=== PATIENT | male | born 1945 | race Caucasian/White ===

== ENCOUNTER 2020-03-19 10:16 | Outpatient (REF) | payer MEDICARE, SELFPAY ==
[2020-03-19 12:15] LABS: Estimated Average Glucose 237 mg/dL; Hemoglobin A1c % 9.9 %
== END 2020-03-19 10:17 | disposition home or self-care (01) ==
LOC: HO.MANLR 10:16
PROVIDERS: PCP Physician Assistant; Visit Provider Physician Assistant
DX: E11.9 Type 2 diabetes mellitus without complications (principal)
CPT/HCPCS: 83036

== ENCOUNTER 2020-07-31 10:12 | Outpatient (REF) | payer MEDICARE, SELFPAY ==
[2020-07-31 17:30] LABS: Creatinine Urine 249.28 mg/dL; Microalbum/Creatinine Ratio Ur 12.4 ug/mg cr
[2020-07-31 17:38] LABS: Estimated Average Glucose 214 mg/dL; Hemoglobin A1c % 9.1 %
[2020-07-31 18:00] LABS: Alanine Aminotransferase 31 U/L (0-40); Albumin Level 4.1 g/dL (3.5-5.0); Alkaline Phosphatase 94 U/L (39-117); Anion Gap 15 (12-20); Aspartate Amino Transferase 22 U/L (5-37); Bilirubin Total 0.6 mg/dL (0.0-1.0); Blood Urea Nitrogen 15 mg/dL (9-16); Calcium 9.1 mg/dL (8.4-10.2); Carbon Dioxide 26 mmol/L (22-29); Chloride 103 mmol/L (96-108); Cholesterol 125 mg/dL; Estimated Glomerular Filt Rate > 60; Glucose Fasting 206 mg/dL (60-99); HDL Cholesterol 36 mg/dL; LDL Cholesterol Calculated 62 mg/dl; Potassium 4.9 mmol/L (3.3-5.1); Sodium 139 mmol/L (135-145); Total Protein 6.7 g/dL (6.5-8.0); Triglycerides 135 mg/dL
== END 2020-07-31 10:13 | disposition home or self-care (01) ==
LOC: HO.MANLDS 10:12
PROVIDERS: PCP Internal Medicine; Visit Provider Physician Assistant
DX: E11.9 Type 2 diabetes mellitus without complications (principal)
CPT/HCPCS: 36415; 80053; 80061; 82043; 83036

== ENCOUNTER 2020-11-22 10:30 | Outpatient (REF) | payer MEDICARE, SELFPAY ==
[2020-11-22 14:07] LABS: Estimated Average Glucose 232 mg/dL; Hemoglobin A1c % 9.7 %
== END 2020-11-22 10:31 | disposition home or self-care (01) ==
LOC: HO.MANLDS 10:30
PROVIDERS: PCP Internal Medicine; Visit Provider Physician Assistant
DX: E11.9 Type 2 diabetes mellitus without complications (principal)
CPT/HCPCS: 36415; 83036

== ENCOUNTER 2021-03-12 10:00 | Outpatient (REF) | payer MEDICARE, SELFPAY ==
[2021-03-12 12:52] LABS: Estimated Average Glucose 246 mg/dL; Hemoglobin A1c % 10.2 %
[2021-03-12 13:08] LABS: Alanine Aminotransferase 29 U/L (0-40); Albumin Level 3.8 g/dL (3.5-5.0); Alkaline Phosphatase 92 U/L (39-117); Anion Gap 16 (12-20); Aspartate Amino Transferase 17 U/L (5-37); Bilirubin Total 0.5 mg/dL (0.0-1.0); Blood Urea Nitrogen 14 mg/dL (9-16); Calcium 9.3 mg/dL (8.4-10.2); Carbon Dioxide 24 mmol/L (22-29); Chloride 105 mmol/L (96-108); Cholesterol 116 mg/dL; Estimated Glomerular Filt Rate > 60; Glucose Fasting 241 mg/dL (60-99); HDL Cholesterol 31 mg/dL; LDL Cholesterol Calculated 41 mg/dl; Potassium 4.5 mmol/L (3.3-5.1); Sodium 140 mmol/L (135-145); Total Protein 6.4 g/dL (6.5-8.0); Triglycerides 220 mg/dL
== END 2021-03-12 10:01 | disposition home or self-care (01) ==
LOC: HO.MANLDS 10:00
PROVIDERS: PCP Physician Assistant; Visit Provider Physician Assistant
DX: E11.9 Type 2 diabetes mellitus without complications (principal)
CPT/HCPCS: 36415; 80053; 80061; 83036

== ENCOUNTER 2021-07-16 09:23 | Outpatient (REF) | payer MEDICARE, SELFPAY ==
[2021-07-16 11:59] LABS: Estimated Average Glucose 237 mg/dL; Hemoglobin A1c % 9.9 %
[2021-07-16 12:12] LABS: Alanine Aminotransferase 31 U/L (0-40); Alkaline Phosphatase 85 U/L (39-117); Anion Gap 16 (12-20); Aspartate Amino Transferase 19 U/L (5-37); Bilirubin Total 0.7 mg/dL (0.0-1.0); Blood Urea Nitrogen 22 mg/dL (9-16); Calcium 9.9 mg/dL (8.4-10.2); Carbon Dioxide 22 mmol/L (22-29); Chloride 106 mmol/L (96-108); Cholesterol 133 mg/dL; Estimated Glomerular Filt Rate > 60; Glucose Fasting 229 mg/dL (60-99); HDL Cholesterol 34 mg/dL; LDL Cholesterol Calculated 54 mg/dl; Potassium 4.5 mmol/L (3.3-5.1); Sodium 139 mmol/L (135-145); Total Protein 6.6 g/dL (6.5-8.0); Triglycerides 228 mg/dL
== END 2021-07-16 09:24 | disposition home or self-care (01) ==
LOC: HO.MANLDS 09:23
PROVIDERS: PCP Physician Assistant; Referring Provider Physician Assistant; Visit Provider Physician Assistant
DX: E11.9 Type 2 diabetes mellitus without complications (principal)
CPT/HCPCS: 36415; 80053; 80061; 83036

== ENCOUNTER 2021-12-09 09:54 | Outpatient (REF) | payer MEDICARE, SELFPAY ==
[2021-12-09 11:19] LABS: Estimated Average Glucose 237 mg/dL; Hemoglobin A1c % 9.9 %
[2021-12-09 12:00] LABS: Alanine Aminotransferase 32 U/L (0-40); Albumin Level 3.8 g/dL (3.5-5.0); Alkaline Phosphatase 91 U/L (39-117); Anion Gap 16 (12-20); Aspartate Amino Transferase 20 U/L (5-37); Bilirubin Total 0.7 mg/dL (0.0-1.0); Blood Urea Nitrogen 15 mg/dL (9-16); Calcium 8.9 mg/dL (8.4-10.2); Carbon Dioxide 24 mmol/L (22-29); Chloride 106 mmol/L (96-108); Cholesterol 123 mg/dL; Estimated Glomerular Filt Rate > 60; Glucose Random 254 mg/dL (60-115); HDL Cholesterol 40 mg/dL; LDL Cholesterol Calculated 55 mg/dl; Potassium 4.7 mmol/L (3.3-5.1); Sodium 141 mmol/L (135-145); Total Protein 6.2 g/dL (6.5-8.0); Triglycerides 140 mg/dL
== END 2021-12-09 09:55 | disposition home or self-care (01) ==
LOC: HO.MANLDS 09:54
PROVIDERS: Visit Provider Physician Assistant
DX: E11.9 Type 2 diabetes mellitus without complications (principal)
CPT/HCPCS: 36415; 80053; 80061; 83036

== ENCOUNTER 2022-03-25 09:33 | Outpatient (REF) | payer MEDICARE, SELFPAY ==
[2022-03-25 11:32] LABS: Estimated Average Glucose 295 mg/dL; Hemoglobin A1c % 11.9 %
[2022-03-25 12:06] LABS: Alanine Aminotransferase 31 U/L (0-40); Albumin Level 3.8 g/dL (3.5-5.0); Alkaline Phosphatase 113 U/L (39-117); Anion Gap 17 (12-20); Aspartate Amino Transferase 21 U/L (5-37); Bilirubin Total 0.8 mg/dL (0.0-1.0); Blood Urea Nitrogen 15 mg/dL (9-16); Calcium 8.8 mg/dL (8.4-10.2); Carbon Dioxide 23 mmol/L (22-29); Chloride 106 mmol/L (96-108); Cholesterol 148 mg/dL; Estimated Glomerular Filt Rate > 60; Glucose Random 342 mg/dL (60-115); HDL Cholesterol 36 mg/dL; LDL Cholesterol Calculated 82 mg/dl; Potassium 4.9 mmol/L (3.3-5.1); Sodium 141 mmol/L (135-145); Total Protein 6.4 g/dL (6.5-8.0); Triglycerides 152 mg/dL
== END 2022-03-25 09:34 | disposition home or self-care (01) ==
LOC: HO.MANLDS 09:33
PROVIDERS: Visit Provider Physician Assistant
DX: E11.9 Type 2 diabetes mellitus without complications (principal)
CPT/HCPCS: 36415; 80053; 80061; 83036

== ENCOUNTER 2022-04-29 11:26 | Outpatient (REF) | payer MEDICARE, SELFPAY ==
[2022-04-29 14:35] LABS: Alanine Aminotransferase 23 U/L (0-40); Albumin Level 3.8 g/dL (3.5-5.0); Alkaline Phosphatase 114 U/L (39-117); Anion Gap 11 (12-20); Aspartate Amino Transferase 15 U/L (5-37); Bilirubin Total 0.6 mg/dL (0.0-1.0); Blood Urea Nitrogen 15 mg/dL (9-16); Calcium 9.3 mg/dL (8.4-10.2); Carbon Dioxide 24 mmol/L (22-29); Chloride 104 mmol/L (96-108); Estimated Glomerular Filt Rate > 60; Glucose Random 438 mg/dL (60-115); Potassium 4.4 mmol/L (3.3-5.1); Sodium 135 mmol/L (135-145); Total Protein 6.3 g/dL (6.5-8.0)
== END 2022-04-29 11:27 | disposition home or self-care (01) ==
LOC: HO.MANLDS 11:26
PROVIDERS: Visit Provider Physician Assistant
DX: E11.9 Type 2 diabetes mellitus without complications (principal)
CPT/HCPCS: 36415; 80053

== ENCOUNTER 2022-11-04 08:56 | Outpatient (REF) | payer MEDICARE, SELFPAY ==
[2022-11-04 13:33] LABS: MANUAL DIFF FLAG NO
[2022-11-04 14:06] LABS: Estimated Average Glucose 206 mg/dL; Hemoglobin A1c % 8.8 %
[2022-11-04 14:07] LABS: Basophils Absolute Auto 0.1 X10*3/uL (0.0-0.2); Basophils Percent Auto 0.5 % (0-2); Eosinophils Absolute Auto 0.2 X10*3/uL (0.0-0.4); Eosinophils Percent Auto 1.7 % (0-4); Hemoglobin 14.7 g/dl (14.0-18.0); Imm Gran Abs Auto 0.05 X10*3/uL (0.00-0.03); Imm Gran Pct Auto 0.5 % (0.0-0.4); Lymphocytes Absolute Auto 3.4 X10*3/uL (1.2-4.9); Lymphocytes Percent Auto 33.3 % (20-40); Mean Corpuscular Hemoglobin 27.8 pg (27.0-33.0); Mean Corpuscular Volume 87.1 fL (80.0-98.0); Mean Platelet Volume 11.5 fL (9.4-12.4); Monocytes Absolute Auto 0.8 X10*3/uL (0.1-1.2); Monocytes Percent Auto 8.3 % (2-11); Neutrophils Absolute Auto 5.6 x10*3/uL (2.0-8.3); Neutrophils Percent Auto 55.7 % (45-73); Platelet Count 284 X10*3/uL (160-400); Red Blood Count 5.28 X10*6/uL (4.60-5.80); Red Cell Distribution Width 13.8 % (11.0-16.0); White Blood Count 10.1 X10*3/uL (4.8-10.8)
[2022-11-04 14:36] LABS: Alanine Aminotransferase 35 U/L (0-40); Albumin Level 3.8 g/dL (3.5-5.0); Alkaline Phosphatase 105 U/L (39-117); Anion Gap 16 (12-20); Aspartate Amino Transferase 19 U/L (5-37); Bilirubin Total 0.9 mg/dL (0.0-1.0); Blood Urea Nitrogen 17 mg/dL (9-16); Calcium 9.9 mg/dL (8.4-10.2); Carbon Dioxide 23 mmol/L (22-29); Chloride 106 mmol/L (96-108); Estimated Glomerular Filt Rate > 60; Glucose Random 236 mg/dL (60-115); Potassium 4.5 mmol/L (3.3-5.1); Sodium 140 mmol/L (135-145); Total Protein 6.7 g/dL (6.5-8.0)
== END 2022-11-04 08:57 | disposition home or self-care (01) ==
LOC: HO.MANLDS 08:56
PROVIDERS: Visit Provider Physician Assistant
DX: E11.41 Type 2 diabetes mellitus with diabetic mononeuropathy (principal)
CPT/HCPCS: 36415; 80053; 83036; 85025

== ENCOUNTER 2023-03-24 09:38 | Outpatient (REF) | payer MEDICARE, SELFPAY ==
[2023-03-24 13:22] LABS: MANUAL DIFF FLAG NO
[2023-03-24 13:44] LABS: Basophils Percent Auto 0.4 % (0-2); Eosinophils Absolute Auto 0.2 X10*3/uL (0.0-0.4); Eosinophils Percent Auto 2.3 % (0-4); Hemoglobin 14.8 g/dl (14.0-18.0); Imm Gran Abs Auto 0.06 X10*3/uL (0.00-0.03); Imm Gran Pct Auto 0.8 % (0.0-0.4); Lymphocytes Absolute Auto 2.6 X10*3/uL (1.2-4.9); Lymphocytes Percent Auto 33.1 % (20-40); Mean Corpuscular HGB Conc 32.2 g/dl (31.0-36.0); Mean Corpuscular Hemoglobin 27.8 pg (27.0-33.0); Mean Corpuscular Volume 86.5 fL (80.0-98.0); Mean Platelet Volume 10.5 fL (9.4-12.4); Monocytes Absolute Auto 0.8 X10*3/uL (0.1-1.2); Monocytes Percent Auto 10.4 % (2-11); Neutrophils Absolute Auto 4.2 x10*3/uL (2.0-8.3); Platelet Count 280 X10*3/uL (160-400); Red Blood Count 5.32 X10*6/uL (4.60-5.80); Red Cell Distribution Width 13.5 % (11.0-16.0)
[2023-03-24 14:09] LABS: Alanine Aminotransferase 40 U/L (0-40); Albumin Level 3.6 g/dL (3.5-5.0); Alkaline Phosphatase 86 U/L (39-117); Anion Gap 11 (12-20); Aspartate Amino Transferase 33 U/L (5-37); Bilirubin Total 0.6 mg/dL (0.0-1.0); Blood Urea Nitrogen 18 mg/dL (9-16); Calcium 9.2 mg/dL (8.4-10.2); Carbon Dioxide 28 mmol/L (22-29); Chloride 104 mmol/L (96-108); Cholesterol 96 mg/dL (<200); Estimated Glomerular Filt Rate > 60; Glucose Random 241 mg/dL (60-115); HDL Cholesterol 32 mg/dL (>40); LDL Cholesterol Calculated 44 mg/dL (<100); Potassium 4.3 mmol/L (3.3-5.1); Sodium 139 mmol/L (135-145); Total Protein 6.3 g/dL (6.5-8.0); Triglycerides 103 mg/dL (<150)
[2023-03-24 14:18] LABS: Creatinine Urine 121.16 mg/dL; Microalbum/Creatinine Ratio Ur 7.4 ug/mg cr (<30)
[2023-03-24 14:37] LABS: Estimated Average Glucose 229 mg/dL; Hemoglobin A1c % 9.6 % (<6.0)
== END 2023-03-24 09:39 | disposition home or self-care (01) ==
LOC: HO.MANLDS 09:38
PROVIDERS: Visit Provider Physician Assistant
DX: E11.65 Type 2 diabetes mellitus with hyperglycemia (principal)
CPT/HCPCS: 36415; 80053; 80061; 82043; 82570; 83036; 85025

== ENCOUNTER 2023-06-29 09:10 | Outpatient (REF) | payer MEDICARE, SELFPAY ==
[2023-06-29 14:08] LABS: MANUAL DIFF FLAG NO
[2023-06-29 14:17] LABS: Basophils Absolute Auto 0.1 X10*3/uL (0.0-0.2); Basophils Percent Auto 0.7 % (0-2); Eosinophils Absolute Auto 0.2 X10*3/uL (0.0-0.4); Eosinophils Percent Auto 2.8 % (0-4); Hematocrit 46.4 % (42.0-52.0); Hemoglobin 14.9 g/dl (14.0-18.0); Imm Gran Abs Auto 0.02 X10*3/uL (0.00-0.03); Imm Gran Pct Auto 0.3 % (0.0-0.4); Lymphocytes Absolute Auto 2.6 X10*3/uL (1.2-4.9); Lymphocytes Percent Auto 36.3 % (20-40); Mean Corpuscular HGB Conc 32.1 g/dl (31.0-36.0); Mean Corpuscular Hemoglobin 27.8 pg (27.0-33.0); Mean Corpuscular Volume 86.6 fL (80.0-98.0); Mean Platelet Volume 10.6 fL (9.4-12.4); Monocytes Absolute Auto 0.8 X10*3/uL (0.1-1.2); Monocytes Percent Auto 10.8 % (2-11); Neutrophils Absolute Auto 3.5 x10*3/uL (2.0-8.3); Neutrophils Percent Auto 49.1 % (45-73); Platelet Count 281 X10*3/uL (160-400); Red Blood Count 5.36 X10*6/uL (4.60-5.80); Red Cell Distribution Width 13.7 % (11.0-16.0); White Blood Count 7.1 X10*3/uL (4.8-10.8)
[2023-06-29 15:13] LABS: Alanine Aminotransferase 24 U/L (0-40); Albumin Level 3.6 g/dL (3.5-5.0); Alkaline Phosphatase 73 U/L (39-117); Anion Gap 12 (12-20); Aspartate Amino Transferase 17 U/L (5-37); Bilirubin Total 0.7 mg/dL (0.0-1.0); Blood Urea Nitrogen 14 mg/dL (9-16); Calcium 9.2 mg/dL (8.4-10.2); Carbon Dioxide 26 mmol/L (22-29); Chloride 107 mmol/L (96-108); Estimated Glomerular Filt Rate > 60; Glucose Random 188 mg/dL (60-115); Potassium 4.2 mmol/L (3.3-5.1); Sodium 141 mmol/L (135-145); Total Protein 6.4 g/dL (6.5-8.0)
[2023-06-29 15:43] LABS: Estimated Average Glucose 220 mg/dL; Hemoglobin A1c % 9.3 % (<6.0)
== END 2023-06-29 09:11 | disposition home or self-care (01) ==
LOC: HO.MANLDS 09:10
PROVIDERS: Visit Provider Physician Assistant
DX: E11.65 Type 2 diabetes mellitus with hyperglycemia (principal)
CPT/HCPCS: 36415; 80053; 83036; 85025

== ENCOUNTER 2023-09-07 10:24 | Outpatient (REF) | payer MEDICARE, SELFPAY ==
[2023-09-07 13:20] LABS: MANUAL DIFF FLAG NO
[2023-09-07 13:31] LABS: Basophils Absolute Auto 0.1 X10*3/uL (0.0-0.2); Basophils Percent Auto 0.7 % (0-2); Eosinophils Absolute Auto 0.2 X10*3/uL (0.0-0.4); Eosinophils Percent Auto 2.2 % (0-4); Hematocrit 47.1 % (42.0-52.0); Hemoglobin 15.4 g/dl (14.0-18.0); Imm Gran Abs Auto 0.02 X10*3/uL (0.00-0.03); Imm Gran Pct Auto 0.2 % (0.0-0.4); Lymphocytes Absolute Auto 3.1 X10*3/uL (1.2-4.9); Lymphocytes Percent Auto 34.7 % (20-40); Mean Corpuscular HGB Conc 32.7 g/dl (31.0-36.0); Mean Corpuscular Hemoglobin 28.9 pg (27.0-33.0); Mean Corpuscular Volume 88.5 fL (80.0-98.0); Mean Platelet Volume 11.2 fL (9.4-12.4); Monocytes Absolute Auto 0.9 X10*3/uL (0.1-1.2); Monocytes Percent Auto 9.5 % (2-11); Neutrophils Absolute Auto 4.7 x10*3/uL (2.0-8.3); Neutrophils Percent Auto 52.7 % (45-73); Platelet Count 269 X10*3/uL (160-400); Red Blood Count 5.32 X10*6/uL (4.60-5.80); Red Cell Distribution Width 13.9 % (11.0-16.0)
[2023-09-07 13:43] LABS: Estimated Average Glucose 194 mg/dL; Hemoglobin A1c % 8.4 % (<6.0)
[2023-09-07 13:55] LABS: Alanine Aminotransferase 27 U/L (0-40); Albumin Level 3.9 g/dL (3.5-5.0); Alkaline Phosphatase 77 U/L (39-117); Anion Gap 17 (12-20); Aspartate Amino Transferase 19 U/L (5-37); Bilirubin Total 0.6 mg/dL (0.0-1.0); Blood Urea Nitrogen 20 mg/dL (9-16); Calcium 9.5 mg/dL (8.4-10.2); Carbon Dioxide 26 mmol/L (22-29); Chloride 105 mmol/L (96-108); Cholesterol 123 mg/dL (<200); Estimated Glomerular Filt Rate > 60; Glucose Random 209 mg/dL (60-115); HDL Cholesterol 36 mg/dL (>40); LDL Cholesterol Calculated 64 mg/dL (<100); Potassium 4.5 mmol/L (3.3-5.1); Sodium 143 mmol/L (135-145); Triglycerides 116 mg/dL (<150)
== END 2023-09-07 10:25 | disposition home or self-care (01) ==
LOC: HO.MANLDS 10:24
PROVIDERS: Visit Provider Physician Assistant
DX: E11.65 Type 2 diabetes mellitus with hyperglycemia (principal); E78.2 Mixed hyperlipidemia
CPT/HCPCS: 36415; 80053; 80061; 83036; 85025

== ENCOUNTER 2023-12-14 09:12 | Outpatient (REF) | payer MEDICARE, SELFPAY ==
[2023-12-14 13:32] LABS: MANUAL DIFF FLAG NO
[2023-12-14 13:45] LABS: Basophils Absolute Auto 0.1 X10*3/uL (0.0-0.2); Basophils Percent Auto 0.5 % (0-2); Eosinophils Absolute Auto 0.3 X10*3/uL (0.0-0.4); Eosinophils Percent Auto 3.1 % (0-4); Hemoglobin 15.5 g/dl (14.0-18.0); Imm Gran Abs Auto 0.05 X10*3/uL (0.00-0.03); Imm Gran Pct Auto 0.5 % (0.0-0.4); Lymphocytes Absolute Auto 3.1 X10*3/uL (1.2-4.9); Lymphocytes Percent Auto 32.1 % (20-40); Mean Corpuscular HGB Conc 32.3 g/dl (31.0-36.0); Mean Corpuscular Hemoglobin 28.4 pg (27.0-33.0); Mean Corpuscular Volume 88.1 fL (80.0-98.0); Mean Platelet Volume 11.1 fL (9.4-12.4); Monocytes Absolute Auto 0.9 X10*3/uL (0.1-1.2); Monocytes Percent Auto 8.9 % (2-11); Neutrophils Absolute Auto 5.3 x10*3/uL (2.0-8.3); Neutrophils Percent Auto 54.9 % (45-73); Platelet Count 232 X10*3/uL (160-400); Red Blood Count 5.45 X10*6/uL (4.60-5.80); Red Cell Distribution Width 13.6 % (11.0-16.0); White Blood Count 9.7 X10*3/uL (4.8-10.8)
[2023-12-14 13:57] LABS: Estimated Average Glucose 197 mg/dL; Hemoglobin A1c % 8.5 % (<6.0)
[2023-12-14 14:08] LABS: Alanine Aminotransferase 43 U/L (0-40); Albumin Level 3.9 g/dL (3.5-5.0); Alkaline Phosphatase 78 U/L (39-117); Anion Gap 16 (12-20); Aspartate Amino Transferase 32 U/L (5-37); Bilirubin Total 0.6 mg/dL (0.0-1.0); Blood Urea Nitrogen 16 mg/dL (9-16); Calcium 9.5 mg/dL (8.4-10.2); Carbon Dioxide 23 mmol/L (22-29); Chloride 103 mmol/L (96-108); Cholesterol 141 mg/dL (<200); Estimated Glomerular Filt Rate > 60; Glucose Random 270 mg/dL (60-115); HDL Cholesterol 38 mg/dL (>40); LDL Cholesterol Calculated 72 mg/dL (<100); Potassium 4.5 mmol/L (3.3-5.1); Sodium 137 mmol/L (135-145); Triglycerides 155 mg/dL (<150)
[2023-12-14 14:17] LABS: Creatinine Urine 251.29 mg/dL; Microalbum/Creatinine Ratio Ur 15.1 ug/mg cr (<30)
== END 2023-12-14 09:13 | disposition home or self-care (01) ==
LOC: HO.MANLDS 09:12
PROVIDERS: Visit Provider Physician Assistant
DX: E11.65 Type 2 diabetes mellitus with hyperglycemia (principal)
CPT/HCPCS: 36415; 80053; 80061; 82043; 82570; 83036; 85025

== ENCOUNTER 2024-04-17 11:08 | Outpatient (REF) | payer MEDICARE, SELFPAY ==
--- OUTSIDE RECORDS SUMMARY | 2024-04-17 11:13 | XMS_ITS | Data Portability ---
Author Organization [facility] Home Service Address [address] [place] [address] Assessment Encounter Date Assessment Date Assessment LastModified by Organization Details LastModified Time 07/06/2023 07/06/2023 Patient agreed and verbally consents to this audio and video Telehealth appt via a secure platform [email or web address] Not available 07/06/2023 10:08:53 12/21/2023 12/21/2023 Patient agreed and verbally consents to this audio and video Telehealth appt via a secure platform [email or web address] Not available 12/21/2023 13:40:50 Plan of Treatment Reminders Order Date Submit Date Provider Last Modified By Organization Details Last Modified Time Details Appointments FOLLOW UP 15 2024 11:00A M MELVIN ELLIOTT Not available Not available Not available Lab CMP, serum or plasma 2022 023 [facility], [address] [place] [address], [id number], 03/25/2023 11:57:12 lipid panel, blood 2022 023 [facility], [address] [place] [address], [id number], 03/25/2023 11:57:12 hemoglobi n A1c, QN, blood 2022 023 [facility], [address] [place] [address], [id number], 03/25/2023 11:57:13 microalbu min, urine 2022 023 [facility], [address] [place] [address], [id number], 01/29/2023 11:04:38 CBC w/ auto diff 2022 023 [facility], [address] [place] [address], [id number], 03/25/2023 11:57:13 CMP, serum or plasma 2022 024 [facility], [address] [place] [address], [id number], 06/30/2023 11:40:16 lipid panel, blood 2022 024 [facility], [address] [place] [address], 94843, 03/25/2023 11:57:12 hemoglobi n A1c, QN, blood 2022 024 [facility], [address] [place] [address], [id number], 06/30/2023 11:40:16 CBC w/ auto diff 2022 024 [facility], [address] [place] [address], 72501, 06/30/2023 11:40:17 CMP, serum or plasma 2023 024 [facility], [address] [place] [address], [id number], 09/08/2023 11:29:16 hemoglobi n A1c, QN, blood 2023 024 [facility], [address] [place] [address], [id number], 09/08/2023 11:29:16 CBC w/ auto diff 2023 024 [facility], [address] [place] [address], [id number], 06/30/2023 11:40:17 hemoglobi n A1c, QN, blood 2023 024 [facility], [address] [place] [address], 36099, 09/14/2023 10:29:45 CMP, serum or plasma 2023 024 [facility], [address] [place] [address], [id number], 12/15/2023 11:27:02 CMP, serum or plasma 2023 024 [facility], [address] [place] [address], 79724, 12/15/2023 11:27:02 HbA1c (hemoglob in A1c), blood 2023 024 [facility], [address] [place] [address], [id number], 09/14/2023 10:28:25 CMP, serum or plasma 2023 024 [facility], [address] [place] [address], [id number], 09/14/2023 10:28:25 lipid panel, blood 2023 024 [facility], [address] [place] [address], [id number], 09/14/2023 10:28:24 hemoglobi n A1c, QN, blood 2023 024 [facility], [address] [place] [address], [id number], 09/14/2023 10:28:24 PSA, serum or plasma 2023 024 [facility], [address] [place] [address], 12659, 12/21/2023 13:55:55 HbA1c (hemoglob in A1c), blood 2023 [facility], [address] [place] [address], 58097, 12/21/2023 13:42:39 CMP, serum or plasma 2023 [facility], [address] [place] [address], 62401, 12/21/2023 13:42:39 lipid panel, blood 2023 [facility], [address] [place] [address], [id number], 12/21/2023 13:42:39 hemoglobi n A1c, QN, blood 2023 024 [facility], [address] [place] [address], 12015, 12/21/2023 13:42:39 Referral podiatris t referral - please leave a VM if patient doesn't answer the phone 2022 023 niurka Perez [facility], [address] [place] [address], [id number], 04/12/2023 08:48:25 Procedures None recorded. Surgeries None recorded. Imaging None recorded. Medication Orders zolpidem 5 mg tablet 2022 023 [facility] #[id number], [address], [place], [id number], 07/06/2023 10:09:58 Ozempic 1 mg/dose (4 mg/3 mL) subcutane ous pen injector 2022 023 [facility] #10182, [address], [place], [id number], 07/06/2023 10:01:21 Ozempic 2 mg/dose (8 mg/3 mL) subcutane ous pen injector 2023 [facility] #[id number], [address], [place], [id number], 07/06/2023 10:11:11 Ozempic 2 mg/dose (8 mg/3 mL) subcutane ous pen injector 2023 [facility] #78490, [facility], [place], [id number], 12/21/2023 13:42:13 glipizide ER 10 mg tablet, extended release 24 hr 2023 024 [facility] #[id number], [facility] [place], [place], [id number], 12/21/2023 13:45:59 Januvia 100 mg tablet 2023 024 [facility] #96489, [facility] [place], [place], [phone], 12/21/2023 13:45:59 metoprolo l tartrate 50 mg tablet 2023 024 [facility] #41986, [facility] [place], [place], [id number], 12/21/2023 13:45:56 atorvasta tin 80 mg tablet 2023 024 [facility] #57567, [address], [place], [id number], 12/21/2023 13:43:27 Patient TargetsNo targets recorded. Patient InstructionsNo instructions recorded. 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 Problems Name Problem SNOMED Code Status Onset Date Resolution Date Notes Provider Name and Address Organization Details Recorded Time Abnormal gait 25057450 Active 2022 Not Available [facility] 4 00:30:26 Irritable bowel syndrome 35021456 Active 2022 Not Available [facility] 4 00:30:26 Diabetes mellitus 13079383 Active 2022 Not Available [facility] 4 00:30:27 Diabetic peripheral neuropathy 324017476 Active 2022 Not Available [facility] 4 00:30:26 Acute bronchitis 37076200 Active 2022 Not Available [facility] 4 00:30:26 Insomnia 957564349 Active 2022 Not Available [facility] 4 00:30:26 Type 2 diabetes mellitus 35263598 Active 2017 Not Available [facility] 4 00:30:26 Fracture of ankle 33390649 Active 2017 2005 Not Available [facility] 4 00:30:26 Prostate specific antigen above reference range 459887663 Active 2017 urology referral Not Available [facility] 4 00:30:26 Carcinoma of prostate 712967687 Active 2017 Not Available [facility] 4 00:30:26 Hyperlipid emia 61365633 Active 2017 Not Available [facility] 4 00:30:26 Onychomyco sis 768367612 Active 2017 Not Available [facility] 4 00:30:26 Coronary arterioscl erosis 61273859 Active 2017 Not Available [facility] 4 00:30:26 Acute non-ST segment elevation myocardial infarction 958559564 Active 2017 inferior/ lateral wall 03/11/16 Not Available [facility] 4 00:30:26 Essential hypertensi on 30618106 Active 2017 Not Available [facility] 4 00:30:26 Notes:Some problems listed i n Document: #[id number] could not be added to this patient's chart. Please review this document and add these problems to the patient's chart manually as needed. Problem Notes None recorded. Procedures Surgical History Date Name Laterality Status Provider Name and Address Organization Details Recorded Time CABG completed [facility] 10/19/2017 13:53:10 Imaging Results None recorded. Procedure Notes None recorded. Medical Equipment None Reported. Allergies Allergen ID Allergen Name Allergen Category Reaction Reaction Severity Criticality Documentation Date Start Date Code Code System Note Provider Name and Address Organization Details Recorded Time 3663 ketoconaz ole medicatio n Not available Not available Not available 05/01/2019 6135 RxNorm blist violeta and faustino kruger [facility] 0 15:18:50 3664 Lupron medicatio n Not available Not available Not available 05/01/201955137 2 RxNorm Radha kruger [facility] 0 15:22:07 5971 valsartan medicatio n diarrhea Not available Not available 12/16/2021 52563 RxNorm MELVIN ELLIOTT [address] [place], [address], [facility] 2 09:46:03 Medications Name Sig Start Date Stop Date Status Note LastModified by Organization Details LastModified Time metformin 500 mg tablet 01/19 completed Not Available Not Available Not Available bicalutam rafiq 50 mg tablet Take 1 tablet every day by oral route. 03/30 completed Not Available Not Available Not Available atorvasta tin 80 mg tablet TAKE 1 TABLET BY MOUTH DAILY. 2023 active Not Available Not Available Not Avai lable doxycycli ne hyclate 100 mg capsule TAKE 1 CAPSULE BY MOUTH TWICE DAILY WITH FOOD AND WATER FOR 5 DAYS 11/25 completed Not Available Not Available Not Available azithromy koki 250 mg tablet TAKE 2 TABLETS (500 MG) BY ORAL ROUTE ONCE DAILY FOR 1 DAY THEN 1 TABLET (250 MG) BY ORAL ROUTE ONCE DAILY FOR 4 DAYS 12/22 completed Not Available Not Available Not Available glyburide 5 mg tablet TAKE 1 TABLET BY MOUTH DAILY IN THE MORNING WITH BREAKFAS T 05/01 completed Not Available Not Available Not Available glipizide ER 10 mg tablet, extended release 24 hr TAKE 1 TABLET BY MOUTH AT NIGHTTIM E 2023 active Not Available Not Available Not Avai lable glipizide 10 mg tablet TAKE 1 TABLET BY MOUTH EVERY DAY active Not Available Not Available No t Available valsartan 80 mg tablet TAKE 1 TABLET BY MOUTH DAILY 12/16 completed Not Available Not Available Not Available dicyclomi ne 20 mg tablet TAKE 1 TABLET BY MOUTH THREE TIMES DAILY FOR 14 DAYS NEEDED 09/16 completed Not Available Not Available Not Available erythromy koki 5 mg/gram (0.5 %) eye ointment APPLY A SMALL AMOUNT TO BOTH EYELIDS AT BEDTIME FOR 1 WEEK 07/29 completed Not Available Not Available Not Available metformin 1,000 mg tablet TAKE 1 TABLET BY MOUTH TWICE DAILY 12/16 completed Not Available Not Available Not Available metoprolo l tartrate 50 mg tablet TAKE 1 TABLET BY MOUTH TWICE DAILY 2023 active Not Available Not Available Not Avai lable mupirocin 2 % topical ointment APPLY TO SURGICAL SITE TWICE DAILY UNTIL FOLLOW UP APPOINTM ENT active Not Available Not Available No t Available zolpidem 5 mg tablet TAKE 1 TABLET BY MOUTH EVERY DAY FOR 14 DAYS 07/05 completed Not Available Not Available Not Available scopolami ne 1 mg over 3 days transderm al patch APPLY 1 PATCH TOPICALL Y TO THE SKIN EVERY 3 DAYS NEEDED 12/16 completed Not Available Not Available Not Available albuterol sulfate HFA 90 mcg/actua tion aerosol inhaler INHALE 2 PUFFS BY MOUTH EVERY 4 HOURS active Not Available Not Available No t Available ketoconaz ole 2 % topical cream 05/01 completed Not Available Not Available Not Available glipizide 5 mg tablet Take 1 tablet every day by oral route for 90 days. 08/10 completed Not Available Not Available Not Available amoxicill in 875 mg-potass ium clavulana te 125 mg tablet TAKE 1 TABLET BY MOUTH TWICE DAILY FOR 10 DAYS 09/13 completed Not Available Not Available Not Available ciclopiro x 0.77 % topical cream APPLY TO RASH ON THE FEET TWICE DAILY active Not Available Not Available No t Available Aspir-81 Take one tablet once a day active Not Available Not Available No t Available Januvia 100 mg tablet TAKE 1 TABLET BY MOUTH EVERY DAY 2023 active Not Available Not Available Not Avai lable Lantus Solostar U-100 Insulin 100 unit/mL (3 mL) subcutane ous pen ADMINIST ER 2 UNITS UNDER THE SKIN EVERY DAY IN THE EVENING 2022 active DOES NOT NEED ANY REFILLS ALL SET; HAS FOUR AT HOME Not Available Not Available Not Available Vitamin D3 125 mcg (5,000 unit) tablet Take 1 tablet every day by oral route. active Not Available Not Available No t Available Lupron Depot (6 Month) once every 6 months 05/01 completed Not Available Not Available Not Available Ozempic 0.25 mg or 0.5 mg (2 mg/1.5 mL) subcutane ous pen injector 0.5 mg every week SG 12/22 completed Not Available Not Available Not Available BD Elsa 2nd Gen Pen Needle 32 gauge x 5/32 USE DIRECTED active Not Available Not Available No t Available Rybelsus 7 mg tablet 09/16 completed Not Available Not Available Not Available Fluzone High-Dose Quad 2019- (PF) 240 mcg/0.7 mL IM syringe ADM 0.7ML IM UTD 03/29 completed Not Available Not Available Not Available Ozempic 1 mg/dose (4 mg/3 mL) subcutane ous pen injector INJECT 1.5MG UNDER THE SKIN ONCE EVERY WEEK 07/05 completed Not Available Not Available Not Available Ozempic 2 mg/dose (8 mg/3 mL) subcutane ous pen injector INJECT 2MG SUBCUTAN EOUS ROUTE EVERY WEEK DIRECTED active Not Available Not Available No t Available Ozempic 0.25 mg or 0.5 mg (2 mg/3 mL) subcutane ous pen injector INJECT 0.5 MG UNDER THE SKIN EVERY WEEK 11/25 completed Not Available Not Available Not Available Vitals Date Recorded Body height Body mass index (BMI) Body weight Heart rate Oxygen saturation Oxygen saturation in Arterial blood by Pulse oximetry Systolic blood pressure Diastolic blood pressure Provider Name and Address Organization Details Last Updated DateTime 3 176.53 cm 37.7 kg/m2 526109. 42 g 78 /min 98 % 98 % 148 mm[Hg] 78 mm[Hg] Mary Swanosn [facility] 3 10:34:00 Date Recorded Body height Body mass index (BMI) Body weight Heart rate Oxygen saturation Oxygen saturation in Arterial blood by Pulse oximetry Systolic blood pressure Diastolic blood pressure Provider Name and Address Organization Details Last Updated DateTime 3 176.53 cm 37.8 kg/m2 803546. 02 g 75 /min 96 % 96 % 130 mm[Hg] 73 mm[Hg] Liza Castrokes [facility] 3 10:59:41 Date Recorded Body height Body mass index (BMI) Body weight Heart rate Oxygen saturation Oxygen saturation in Arterial blood by Pulse oximetry Systolic blood pressure Diastolic blood pressure Provider Name and Address Organization Details Last Updated DateTime 4 176.53 cm 37.5 kg/m2 059373. 11 g 78 /min 97 % 97 % 126 mm[Hg] 82 mm[Hg] Katarina Zion [facility] 4 10:07:06 Social History Question Answer Notes LastModified by Organizat ion Details LastModified Time Tobacco Smoking Status Former Smoker Not Available [facility] 02/27/2020 03:36:23 What Was The Date Of Your Most Recent Tobacco Screening? 09/14/2023 [email or web address] Information not available 09/14/2023 How Many Years Have You Smoked Tobacco? 50 [id number] Information not available 02/27/2020 Sex: Unknown Functional Status None recorded. Mental Status None recorded. Family History Nothing Reported. Medical History No medical history recorded. Immunizations Vaccine Type Date Status Note Provider Nam e and Address Organization Details Recorded Time Pneumococcal conjugate PCV 13 8 completed Not Available [facility] 05/17/2023 00:30:27 COVID-19, mRNA, LNP-S, bivalent, PF, 10 mcg/0.2 mL 1 completed Not Available [facility] 05/17/2023 00:30:27 COVID-19, mRNA, LNP-S, bivalent, PF, 10 mcg/0.2 mL 2 completed Not Available [facility] 05/17/2023 00:30:27 influenza, unspecified formulation 2 completed Not Available [facility] 05/17/2023 00:30:27 Influenza, split virus, quadrivalent, preservative 9 completed Not Available [facility] 05/17/2023 00:30:27 pneumococcal polysaccharide PPV23 4 completed Not Available [facility] 05/17/2023 00:30:27 Influenza, split virus, quadrivalent, preservative 7 completed Not Available [facility] 05/17/2023 00:30:27 zoster live 2 completed Not Available [facility] 05/17/2023 00:30:27 Influenza, split virus, quadrivalent, preservative 0 completed Not Available [facility] 05/17/2023 00:30:27 COVID-19, mRNA, LNP-S, PF, 100 mcg/0.5mL dose or 50 mcg/0.25mL dose 1 completed Not Available [facility] 05/17/2023 00:30:27 COVID-19, mRNA, LNP-S, PF, 100 mcg/0.5mL dose or 50 mcg/0.25mL dose 1 completed Not Available [facility] 05/17/2023 00:30:27 Past Encounters Encounter ID Performer Location Encounter Start Date Encounter Closed Date Diagnosis/Indication Diagnosis SNOMED-CT Code Diagnosis ICD10 Code [id number] July [facility] [address] [place] [address],[place] [address] 10/20/2017 09:14:05 10/20/2017 13:50:08 Type 2 diabetes mellitus 07771874 E11.65 Hyperlipidemia 19355707 E78.5 Venereal d isease screening 017943207 Z11.3 Essential hypertension 36031181 I10 [id number] July [facility] [address] [place] [address],[place]id[place] [address] 01/19/2018 08:48:10 01/19/2018 09:39:26 Type 2 diabetes mellitus 35257770 E11.65 Hyperlipidemia 93904469 E78.5 Venereal d isease screening 403515963 Z11.3 Essential hypertension 37457314 I10 Hypothyroidism 76513436 E03.9 [id number] [facility] [address] [place] [address] 05/13/2018 13:29:58 05/17/2018 08:49:12 Type 2 diabetes mellitus 08140720 E11.65 Hyperlipidemia 59492239 E78.5 Essential hypertension 96997033 I10 Hypothyroidism 45430742 E03.9 Edema of l ower extremity 901705385 R60.0 [id number] [facility] [address] [place] [address] 09/14/2018 13:32:28 09/14/2018 14:07:33 Type 2 diabetes mellitus 12211823 E11.65 Hyperlipidemia 26085365 E78.5 Essential hypertension 23459005 I10 Hypothyroidism 61554596 E03.9 Edema of l ower extremity 968370711 R60.0 Body mass index 40+ - severely obese 284887471 Z68.41 [id number] [facility] [address] [place] [address] 12/23/2018 10:48:06 12/23/2018 16:31:29 Type 2 diabetes mellitus 02610831 E11.65 Hyperlipidemia 35323549 E78.5 Essential hypertension 79124556 I10 Hypothyroidism 56682067 E03.9 Edema of l ower extremity 976697400 R60.0 Body mass index 40+ - severely obese 939430203 Z68.41 Prostate s pecific antigen above reference range 014685186 R97.20 Fatigue 85758802 R53.83 Tick bite without infection 009382147 W57.XXXA [id number] [facility] [address] [place] [address] [place] [address] 05/01/2019 14:42:27 05/01/2019 16:05:27 Type 2 diabetes mellitus 75759704 E11.65 Body mass index 40+ - severely obese 010392890 Z68.41 Advance care planning 71 6599806 Z71.89 [id number] Emily HookerLEANN child [facility] [address] [facility],[place] [address] 08/11/2019 08:22:05 08/11/2019 09:54:47 Type 2 diabetes mellitus 37448313 E11.65 Body mass index 40+ - severely obese 793075578 Z68.41 Prostate s pecific antigen above reference range 797768180 R97.20 [id number] MELVIN ELLIOTT [facility] [address] [facility],[place] [address] 12/22/2019 08:43:33 12/22/2019 11:12:02 Essential hypertension 41908723 I10 Type 2 quang betes mellitus 50027664 E11.9 [id number] MELVIN ELLIOTT [facility] [address] [place] [address],[place] [address] 03/29/2020 10:01:56 03/29/2020 10:43:14 Essential hypertension 62032297 I10 Type 2 quang betes mellitus 00239586 E11.9 [id number] MELVIN ELLIOTT [facility] [address] [place] [address],[place] [address] 08/06/2020 09:42:46 08/06/2020 14:53:17 Hypertensive disorder 27848270 I10 Diabetes mellitus 165456 09 E11.9 [id number] MELVIN ELLIOTT [facility] [address] [facility],[place] [address] 11/27/2020 09:35:47 11/27/2020 11:56:55 Type 2 diabetes mellitus 87041961 E11.9 Essential hypertension 72350849 I10 Hyperlipidemia 37077795 E78.5 Body mass index 40+ - severely obese 352947598 Z68.41 [id number] MELVIN ELLIOTT [facility] [address] [place] [address],[place] [address] 03/24/2021 09:28:50 03/24/2021 10:33:05 Type 2 diabetes mellitus 19221806 E11.9 Essential hypertension 39007133 I10 Hyperlipidemia 48454340 E78.2 [id number] MELVIN ELLIOTT [facility] [address] [facility],[place] [address] 07/22/2021 08:45:57 07/22/2021 12:36:25 Type 2 diabetes mellitus 77499834 E11.9 Hyperlipidemia 52121458 E78.2 Essential hypertension 05126517 I10 Motion sickness 24473579 T75.3XXA [id number] MELVIN ELLIOTT [facility] [address] [facility],[place] [address] 12/16/2021 07:56:05 12/16/2021 09:56:49 Type 2 diabetes mellitus 60054057 E11.9 Essential hypertension 07004482 I10 [id number] MELVIN ELLIOTT [facility] [address] [place] [address],[place] [address] 03/30/2022 09:01:57 03/30/2022 09:49:59 Essential hypertension 30824919 I10 Type 2 quang betes mellitus 00387140 E11.9 Body mass index 40+ - severely obese 342947901 Z68.41 Advance care planning 71 6996799 Z71.89 [id number] MELVIN ELLIOTT [facility] [address] [facility],[place] [address] 05/04/2022 10:33:26 05/04/2022 11:56:43 Abnormal gait 57173260 R26.89 Type 2 quang betes mellitus 21286818 E11.9 [id number] MELVIN ELLIOTT [facility] [address] [place] [address],[place] [address] 05/20/2022 10:16:45 05/20/2022 11:45:05 Type 2 diabetes mellitus 03212860 E11.9 [id number] MELVIN ELLIOTT [facility] [address] [facility],[place] [address] 06/03/2022 10:00:32 06/03/2022 14:43:09 Essential hypertension 54423209 I10 Type 2 quang betes mellitus 66073613 E11.9 Body mass index 40+ - severely obese 920642745 Z68.41 [id number] MELVIN ELLIOTT [facility] [address] [facility],[place] [address] 06/17/2022 10:46:13 06/19/2022 10:26:58 Essential hypertension 37088717 I10 Type 2 quang betes mellitus 63942648 E11.9 Irritable bowel syndrome 06286831 K58.9 [id number] MELVIN ELLIOTT [facility] [address] [facility],[place] [address] 07/01/2022 10:11:22 07/01/2022 14:56:03 Essential hypertension 65048326 I10 Irritable bowel syndrome 37111098 K58.9 Type 2 quang betes mellitus 84445680 E11.65 [id number] MELVIN ELLIOTT [facility] [address] [place] [address],[place] [address] 07/15/2022 14:07:14 07/15/2022 16:40:36 Type 2 diabetes mellitus 40128968 E11.65 Essential hypertension 47848147 I10 Diabetes mellitus 451057 09 E11.9 [id number] MELVIN ELLIOTT [facility] [address] [place] [address],[place] [address] 07/29/2022 14:01:59 07/29/2022 15:57:42 Type 2 diabetes mellitus 33716063 E11.65 Irritable bowel syndrome 98533734 K58.9 [id number] MELVIN ELLIOTT [facility] [address] [place] [address],[place] [address] 08/12/2022 09:53:27 08/12/2022 11:58:59 Type 2 diabetes mellitus 44160088 E11.65 [id number] MELVIN ELLIOTT [facility] [address] [place] [address],[place] [address] 08/26/2022 10:34:49 08/26/2022 11:44:12 Type 2 diabetes mellitus 44848479 E11.65 Essential hypertension 30849380 I10 Hyperlipidemia 38509847 E78.2 [id number] MELVIN ELLIOTT [facility] [address] [place] [address],[place] [facility] [place] [address] 09/16/2022 09:13:12 09/16/2022 13:59:11 Type 2 diabetes mellitus [id number] E11.65 [id number] MELVIN ELLIOTT [facility] [address] [place] [address] [address] [facility] [place] [address] 10/07/2022 09:39:25 10/07/2022 10:46:23 Diabetic peripheral neuropathy 447094756 E11.41 [id number] MELVIN ELLIOTT [facility] [address] [place] [address] [place] [address] 11/25/2022 08:57:18 11/27/2022 14:35:17 Diabetic peripheral neuropathy 704762117 E11.41 Type 2 quang betes mellitus 72898031 E11.65 Acute bronchitis 8900503 2 J20.8 [id number] MELVIN ELLIOTT [facility] [address] [place] [address] [place] [address] 12/22/2022 08:41:15 12/29/2022 12:59:54 Acute bronchitis 70003196 J20.8 Diabetes mellitus 598234 09 E11.9 Diabetic p eripheral neuropathy 430684229 E11.41 Essential hypertension 87404660 I10 Hyperlipidemia 47801105 E78.2 Type 2 quang betes mellitus 36714565 E11.65 [id number] MELVIN ELLIOTT [facility] [address] [place] [address] [address] [facility] [place] [address] 01/29/2023 10:10:37 01/29/2023 14:46:03 Acute bronchitis 43016464 J20.8 Coronary arteriosclerosis 98610790 I25.110 Diabetic p eripheral neuropathy 339163344 E11.41 Essential hypertension 83725139 I10 Type 2 quang betes mellitus 86507044 E11.65 [id number] MELVIN ELLIOTT [facility] [address] [place], [place] [address] [address] 04/05/2023 10:54:49 04/05/2023 15:48:08 Diabetic peripheral neuropathy 848496289 E11.41 Type 2 quang betes mellitus 34322678 E11.65 Insomnia 607038802 G47.0 9 [id number] MELVIN ELLIOTT [facility] [address] [facility],[place] [address] 07/06/2023 07:59:29 07/06/2023 12:03:47 Type 2 diabetes mellitus 37594608 E11.65 [id number] MELVIN ELLIOTT [facility] [address] [facility],[place] [address] 09/14/2023 09:39:40 09/15/2023 08:41:07 Depression screening 397578630 Z13.31 Type 2 quang betes mellitus 55914255 E11.65 [id number] MELVIN ELLIOTT [facility] [address] [facility],[place] [address] 12/21/2023 08:47:36 12/21/2023 14:11:36 Type 2 diabetes mellitus 95943722 E11.41 E11.65 Hyperlipidemia 92044368 E78.2 Body mass index 30+ - obesity 560669987 Z68.41 Coronary arteriosclerosis 34513264 I25.110 Essential hypertension 90827543 I10 Prostate s pecific antigen above reference range 115453920 R97.20 Health Concerns Section Related Observation LastModified by Organization Detai ls LastModified Time None Recorded Concern Status LastModified by Organization Details LastModified Time None Recorded Advance Directives Directive None Recorded Payers Encounter Date Sequence Insurance Name Policy Number Policy Aguilar Covered Member ID Aguilar Member ID Guarantor Name 01/29/2023 1 MEDICARE B-[place]: TV[employer] Time [facility] Obi Amaya [id number] Obi Sargentzoyajeremias 01/29/2023 2 [employer] OPTIONS - PLAN T2 (INDEMNITY) Obi Amaya [id number] Obi Sargentzoyajeremias 04/05/2023 1 MEDICARE B-[place]: [facility] Obi Amaya [id number] Obi Sargentbailey 04/05/2023 2 [employer] OPTIONS - PLAN T2 (INDEMNITY) Edmandy Potyrala [id number] Edward F Potyrala 07/06/2023 1 MEDICARE B-[place]: [facility] Edward F Potyrala [id number] Edward F Potyrala 07/06/2023 2 [employer] OPTIONS - PLAN T2 (INDEMNITY) Edmandy Potyrala [id number] Edward F Potyrala 09/14/2023 1 MEDICARE B-[place]: [facility] Edward F Potyrala [id number] Edward F Potyrala 09/14/2023 2 [employer] OPTIONS - PLAN T2 (INDEMNITY) Edmandy Potyrala [id number] Edward F Potyrala 12/21/2023 1 MEDICARE B-[place]: [facility] Edward F Potyrala [id number] Edward F Potyrala 12/21/2023 2 [employer] OPTIONS - PLAN T2 (INDEMNITY) Edmandy Potyrala [id number] Edward F Potyrala Notes Date Note Type Note Provider Name a nd Address Organization Details Recorded Time 3 text/html acute bronchitis: resolved CAD: stablehas a f/u with 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 end of this month diabetic neuropathy: stable, no major changes his levels of his sugar seems to be evening outmajor peaks are in the afternoonaverage 230 which has improved HTN: stable MELVIN ELLIOTT [address] [place], [address], [facility] 01/29/2023 11:31:52 3 text/html 3 mos fu patient's A1c has started to climb back uphas been slipping with his diet, hortencia with holidaysagreed to adjust dose to accommodate this change in eating to drop his levels back down into at least the 8's would ultimately like to get will up his ozempic 1.5 MG instead of 1 MGagreed to changealso take care of his insomnia has another skin cancer removalmonitored closely MELVIN ELLIOTT [address] [place], [address], [facility] 04/05/2023 11:40:23 03/12/202 4 text/html f/u 3 mos The patient is participating in this appointment via telemedicine communication with a phone call/video calling service (Doxy)The patient consents to use of these platforms in place of an in-person appointment due to either sick symptoms the patient is presenting with or current office closure due to COVID exposure in order to keep our office staff and patients safe t2dm: down from 9.3 to 9.6the patient's average is getting lowerhis average is 186will see Dr. Bo Perez tomorrow (podiatry)will be having he procedure to cut the tendon since it is completely retracted otherwise doing well also seeing the [facility] for the basal cell carcinoma f/u the patient MELVIN ELLIOTT [address] [place], [address], [facility] 07/06/2023 10:11:55 4 text/html f/u 3 mos the patient is been doing goodthe patient is feeling goodhad seen podiatrydoing well the patient A1c is down from 9.3% to 8.4%great progress feeling good, BP is excellent today in the office the patient BP is 126/82 L armthe patient is doing well on the BP medication with no side effects and no adjustment of their medications needed today at the appointmentwell-contro lled on medicationdenies chest pain, sob, ankle swelling, orthopnea, palpitations standing all set for the year MELVIN ELLIOTT [address] [place], [address], [facility] 09/14/2023 10:36:19 4 text/html 3 mos f/u The patient is participating in this appointment via telemedicine communication with a phone call/video calling service (Doxy)The patient consents to use of these platforms in place of an in-person appointment due to either sick symptoms the patient is presenting with or current office closure due to COVID exposure in order to keep our office staff and patients safe A1c is down from 9.2% to 8.4%doing well on the medication without issues recently seen by oncologistnumbers looked good, happy with his weight and glucose controlno interaction with current medications needs refills, all updated in our system standing orders submitted he is very careful with his diet MELVIN ELLIOTT [address] [place] [address], [place], [address], [facility] 12/21/2023 13:58:06
[2024-04-17 12:34] LABS: Estimated Average Glucose 217 mg/dL; Hemoglobin A1C 320.2958 umol/L; Hemoglobin A1c % 9.2 % (<6.0); Total Hemoglobin (HGBA1C) 4183.6387 umol/L
[2024-04-17 12:47] LABS: Alanine Aminotransferase 31 U/L (0-40); Alkaline Phosphatase 82 U/L (39-117); Anion Gap 13 (12-20); Aspartate Amino Transferase 26 U/L (5-37); Bilirubin Total 0.7 mg/dL (0.0-1.0); Blood Urea Nitrogen 15 mg/dL (9-16); Calcium 9.5 mg/dL (8.4-10.2); Carbon Dioxide 25 mmol/L (22-29); Chloride 104 mmol/L (96-108); Cholesterol 129 mg/dL (<200); Estimated Glomerular Filt Rate > 60; Glucose Random 228 mg/dL (60-115); HDL Cholesterol 36 mg/dL (>40); LDL Cholesterol Calculated 60 mg/dL (<100); Potassium 4.3 mmol/L (3.3-5.1); Sodium 138 mmol/L (135-145); Total Protein 7.1 g/dL (6.5-8.0); Triglycerides 169 mg/dL (<150)
[2024-04-17 13:06] LABS: Prostate Specific Antigen 0.37 ng/mL (<0.05-4.0)
== END 2024-04-17 11:09 | disposition home or self-care (01) ==
LOC: HO.LABR 11:08
PROVIDERS: PCP Physician Assistant; Visit Provider Physician Assistant
DX: Z12.5 Encounter for screening for malignant neoplasm of prostate (principal); R97.20 Elevated prostate specific antigen [PSA]; E11.41 Type 2 diabetes mellitus with diabetic mononeuropathy
CPT/HCPCS: 36415; 80053; 80061; 83036; 84153

== ENCOUNTER 2024-10-16 09:52 | Outpatient (REF) | payer MEDICARE, SELFPAY ==
[2024-10-16 10:41] LABS: Estimated Average Glucose 212 mg/dL
--- OUTSIDE RECORDS SUMMARY | 2024-10-16 10:45 | XMS_ITS | Clinical Summary ---
Author Organization [address] [place] [address] [place] [address] Phone Care Team Providers Care Manager Content Name Role Phone Jaycob Berger DO Primary Care Provider [phone] Allergies Active Allergy Reactions Criticality Noted Date Comments Ketoconazole Nausea And Vomiting 06/07/2023 Leuprolide 06/07/2023 Valsartan 06/07/2023 Medications atorvastatin (LIPITOR) 80 mg tablet Take 1 Tablet by mouth daily. 3 Active ciclopirox (LOPROX) 0.77 % cream APPLY TO RASH ON THE FEET TWICE DAILY Active SITagliptin phosphate (Januvia) 100 mg tablet Take 1 Tablet by mouth daily. Active semaglutide (Ozempic) 1 mg/dose (2 mg/1.5 mL) injection pen Inject into the skin once a week. Active semaglutide (Ozempic) 0.25 mg or 0.5 mg (2 mg/3 mL) injection pen Inject into the skin. Active glipiZIDE (GLUCOTROL XL) 10 mg 24 hr tablet Take 10 mg by mouth daily. Active cholecalciferol (VITAMIN D-3) 5,000 Units tablet Take by mouth. Active hydrocortisone 1 % lotion Apply topically 2 (two) times a day. Foot rash 118 mL 5 Active aspirin 81 mg EC tablet Take 1 tablet (81 mg total) by mouth 1 (one) time each day. 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 Do not crush or chew. 30 each 11 5 06/13/19 26 Active Active Problems Problem Noted Date Diagnosed Date Old [place] (myocardial infarction) 06/13/2024 History of four vessel coronary artery bypass gr aft 06/13/2024 Class 2 severe obesity due t o excess calories with serious comorbidity and body mass index (BMI) of 35.0 to 35.9 in adult ([facility] V24, [facility] V28) 03/15/2024 Sleep disturbance 02/18/2023 Overview (03/15/2024): Last Assessment & Plan: The patient has a history of WOLF and formally used CPAP; he states that ever since he had his cardiac bypass surgery completed and he has lost a significant amount of weight, he no longer snores and has not used his CPAP in a very long time. He does not feel he needs it, he did not like using it, and does not want a sleep study completed to reevaluate any further need of this. We had a long discussion regarding the potential implications of untreated CPAP, he verbalizes understanding and continues to decline repeat study. Diabetes 1.5, managed as type 2 ([facility] [place], [facility] V28) 08/04/2021 Coronary artery disease 01/06/2021 Overview (03/15/2024): Last Assessment & Plan: Patient presents today without any exertional symptoms concerning for ischemia, and no further testing appears to be indicated at this time. He does have very mild lower leg edema that he reports is at his normal baseline. He does not wear compression socks though he does have them at home and he was encouraged to use these on a regular basis. He reports a history of orthopedic injuries and feels that this is what his swelling is related to. He is otherwise euvolemic on exam. We will continue GDMT with beta-blockade, daily baby aspirin, and atorvastatin with an LDL goal less than 70. We do not have recent lab work that the patient states was completed at his PCPs office; we will try to obtain this for review to ensure ongoing therapy remains appropriate. I have reviewed with the patient the importance of a heart healthy lifestyle which includes eating a low-fat low-salt diet, getting regular exercise, maintaining a healthy weight, not smoking, and following up with routine medical care. Patient advised to seek emergency medical attention by calling 911 if they were to develop severe dyspnea, chest pain that did not resolve with rest, or if they were to faint. Hyperlipidemia LDL goal <70 01/06/2021 Overview (03/15/2024): Last Assessment & Plan: He tells me his PCP monitors his, his goal LDL is less than 70. Essential hypertension 01/06/2021 Overview (03/15/2024): Last Assessment & Plan: Blood pressure remains worked well controlled on current medical therapies; we will make no changes today. We will await lab results the PCP has been monitoring and make any changes as appropriate. Encounters Date Type Department Care Team Description 07/31/2024 2:30 PM EDT Ancillary Procedure [facility] [address] [facility] [address] [place] [address] Coronary artery disease, unspecified vessel or lesion type, unspecified whether angina present, unspecified whether ke[place] or transplanted heart; Hyperlipidemia LDL goal <70; Essential hypertension; Diabetes 1.5, managed as type 2 ([facility] V24, [facility] V28); Class 2 severe obesity due to excess calories with serious comorbidity and body mass index (BMI) of 35.0 to 35.9 in adult ([facility] V24, [facility] V28); Old [place] (myocardial infarction); History of four vessel coronary artery bypass graft; First degree AV block 07/31/2024 9:45 AM EDT Office Visit [facility] - [place] [address] [facility] [address] [place] [address] Bo Perez DPM Other eczema (Primary Dx); Dermatophytosis of nail; Pain in toe of right foot; Pain in toe of left foot; Tinea pedis of both feet; Diabetic mononeuropathy simplex ([facility] V24, [facility] V28) from Last 3 Months Social History Tobacco Use Types Packs/Day Years Used Date Smoking Tobacco: Former Smokeless Tobacco: Never Tobacco Cessation:Counseling Given: Not Answered Alcohol Use Standard Drinks/Week Comments Yes 6 (1 standard drink = 0.6 oz pur e alcohol) Sex and Gender Information Value Date Recorded Sex Assigned at Not on file Legal Sex Male 3:35 AM EST Gender Identity Not on file Sexual Orientation Not on file Obstetrics History Last Filed Vital Signs Vital Sign Reading Time Taken Comments Blood Pressure 162/77 07/31/2024 2:49 PM EDT Pulse 76 06/13/2024 2:15 PM EST Temperature - - Respiratory Rate - - Oxygen Saturation 93% 06/13/2024 2:15 PM EST Inhaled Oxygen Concentration - - Weight 116 kg (256 lb) 07/31/2024 2:49 PM EDT Height 182.9 cm (6') 07/31/2024 2:49 PM EDT Body Mass Index 34.72 07/31/2024 2:49 PM EDT Plan of Treatment Upcoming Encounters Date Type Department Care Team (Late st Contact Info) Description 10/31/2024 8:30 AM EDT Office Visit Orthopedic Surgery - [place] [address] [phone] Bo Perez DPM [address] [address] 12/26/2024 8:40 AM EDT Office Visit [facility] [address] [facility] [address] [place] [phone] Mignon Martinez NP 300 [facility] [address] [place] [address] Health Maintenance Due Date Last Done Comments Diabetes: Annual GFR (Glomerular Filtration Rate) 1945 Diabetes: Annual Foot Exam 1955 Diabetes: Annual Retina Eye Exam 1955 Zoster Vaccines (1 of 2) 03/01/2012 01/05/2012 RSV Immunization Adult Patients (1 - 1-dose 75+ series) 02/12/2020 Cholesterol Screening (Lipid Panel) 03/29/2022 Depression Screening 03/29/2022 Falls Risk Assessment 03/29/2022 Hepatitis C Screening 03/29/2022 Medicare Annual Wellness Visit 03/29/2022 Social Influencers of Health Screening 03/29/2022 Hypertension/CHF/CAD Annual BMP Blood Test 04/05/2022 Diabetes: Annual Urine Albumin-Creatinine Ratio (uACR) 04/09/2022 Diabetes: Blood Sugar Control Test (HGBA1C) 04/09/2022 COVID-19 Vaccine ( season) 2023 01/22/2022, 12/13/2020, 07/27/2020, Additional history exists Influenza Vaccine (Season Ended) 2024 01/24/2022, 01/22/2022, 01/23/2021, Additional history exists DTaP,Tdap,and Td Vaccines (2 - Td or Tdap) 09/25/2030 09/25/2020 Pneumococcal Vaccine: 50+ Years Completed 01/19/2018, 03/17/2016, 02/23/2014 HIB Vaccines Aged Out No longer eligi ble based on patient's age to complete this topic HPV Vaccines Aged Out No longer eligi ble based on patient's age to complete this topic Hepatitis A Vaccines Aged Out No long er eligible based on patient's age to complete this topic Hepatitis B Vaccines Aged Out No long er eligible based on patient's age to complete this topic IPV Vaccines Aged Out No longer eligi ble based on patient's age to complete this topic MMR Vaccines Aged Out No longer eligi ble based on patient's age to complete this topic Meningococcal ACWY Vaccine Aged Out N o longer eligible based on patient's age to complete this topic Meningococcal B Vaccine Aged Out No l onger eligible based on patient's age to complete this topic RSV Immunization Patients Under 20 months Aged Out No longer eligible based on patient's age to complete this topic Varicella Vaccines Aged Out No longer eligible based on patient's age to complete this topic Procedures Procedure Name Priority Date/Time Associated Diagnosis Comments TRANSTHORACIC ECHOCARDIOGRAM (TTE) COMPLETE W/ CONTRAST Routine 07/31/2024 2:49 PM EDT Coronary artery disease, unspecified vessel or lesion type, unspecified whether angina present, unspecified whether [place] or transplanted heart Hyperlipidemia LDL goal <70 Essential hypertension Diabetes 1.5, managed as type 2 ([facility] V24, [facility] V28) Class 2 severe obesity due to excess calories with serious comorbidity and body mass index (BMI) of 35.0 to 35.9 in adult (CMS/HCC V24, [facility] V28) [place] (myocardial infarction) History of four vessel coronary artery bypass graft First degree AV block from Last 3 Months Results * (ABNORMAL) TRANSTHORACIC ECHOCARDIOGRAM (TTE) COMPLETE W/ CONTRAST (07/31/2024 2:49 PM EDT) Left Atrium [place] 5.1 cm CV PACS Left Atrium [place] 5.6 cm CV PACS LA Area Sys (A2C) 22 cm2 CV PACS LA Area Sys (A4C) 15 cm2 CV PACS LA Volume (BP) 51 mL CV PACS RA Area 15.7 cm2 CV PACS RA 2D Volume 40 mL CV PACS AV Mean Gradient 3 mmHg CV PACS Ao VTI 20.9 cm CV PACS AV Peak Jimmy 1.1 m/s CV PACS AV Peak Gradient 5 mmHg CV PACS AV Area Continuity Equation 3.2 cm2 CV PACS AV Area Peak Velocity 2.8 cm2 CV PACS Aortic Sinus Valsalva 3.9 cm CV PACS Ascending Aorta 3.5 cm CV PACS IVSD 1.3(A) 0.6 - 1.0 cm CV PACS LVIDD 4.2 4.2 - 5.8 cm CV PACS LVIDS 3.3 2.5 - 4.0 cm CV PACS LVOT Diameter 2.2 cm CV PACS LVOT Mean Grad 2 mmHg CV PACS LVOT Peak VTI 15.9 cm CV PACS LVOT Mean Jimmy 0.5 m/s CV PACS LVOT Peak Jimmy 0.9 m/s CV PACS LVOT Peak Gradient 3 mmHg CV PACS LVPWD 1.2(A) 0.6 - 1.0 cm CV PACS MV E' Tissue Velocity Lateral 13 cm/s CV PACS MV E' Tissue Velocity Septal 9 cm/s CV PACS LVOT Area 3.8 cm2 CV PACS LVOT Stroke Volume 68 mL CV PACS E Wave Deceleration Time 123 119 - 242 ms CV PACS MV Peak A Jimmy 0.80 m/s CV PACS MV Peak E Jimmy 0.60 m/s CV PACS MV Mean Gradient 1 mmHg CV PACS MV VTI 20.8 cm CV PACS Mitral Valve Max Velocity 0.8 m/s CV PACS MV Peak Gradient 3 mmHg CV PACS MV Area Continuity Equation 3.3 cm2 CV PACS PV Acceleration Time 83 ms CV PACS RV S' 7 cm/s CV PACS TAPSE 14 mm CV PACS TR Peak Velocity 1.20 m/s CV PACS TR Peak Gradient 6 mmHg CV PACS E/E' Ratio Septal 7 CV PACS E/E' Ratio Averaged 6 CV PACS Relative Wall Thickness ratio 0.55(A) 0.24 - 0.42 CV PACS LVOT:AV VTI Index 0.85 CV PACS FS 21 % CV PACS LV Mass 2D 181 96 - 200 g CV PACS MV VTI:LVOT VTI ratio 1.3 CV PACS LVOT flow 190 mL/s CV PACS AV Velocity Ratio 0.79 CV PACS E/A Ratio 0.8 0.8 - 2.0 CV PACS E/E' Ratio Lateral 5 CV PACS LVOT Stroke Index 0 mL/m2 CV PACS Ascending Aorta Index 1.48 cm/m2 CV PACS RA 2D Volume Index 17 18 - 32 mL/m2 CV PACS EULALIO Index (VTI) 1.22 cm2/m2 CV PACS EULALIO Index (Pk Jimmy) 1.18 cm2/m2 CV PACS LVIDD Index 1.77 cm/m2 CV PACS LVIDS Index 1.39 cm/m2 CV PACS LA Volume Index (BP) 21 mL/m2 CV PACS LV Mass Index 2D 80 50 - 102 g/m2 CV PACS BSA 2.43 m2 CV PACS RV Free Wall Peak S' 7 cm/s CV PACS RA [place] 4.7 cm CV PACS RA [place] Index 2.0(A) 2.1 - 2.7 cm/m2 CV PACS MV PHT 36 ms CV PACS AV Area 2D 3.0 cm2 CV PACS EULALIO Index (2D) 1.27 cm2/m2 CV PACS AV Area Index 1.2 CV PACS Inferior Vena Cava Diameter At Expiration 1.8 cm CV PACS IVC Expiration Index 0.76 cm/m2 CV PACS Anatomical Region Laterality Modality Ultrasound Narrative 08/02/2024 11:30 AM EDT Technically limited study. Somewhat enhanced by Definity echo contrast. LV wall thickness just above the upper limits of normal. Systolic function looks normal with an EF of 55 to 60%. Questionable hypokinesis at the base of the inferior wall and inferior septum mainly on the contrast images. The right ventricle appears to be mildly hypokinetic as seen on limited views. Both atria are normal. No significant valvular abnormality could be detected. The valves are not well-visualized. The aorta at the sinuses of Valsalva is slightly dilated at 3.9 cm and the ascending aorta is at the upper limits of normal at 3.5 cm No prior echo for comparison. Left Ventricle Left ventricle was not well visualized. Definity did help somewhat Wall thickness appears to be slightly generous. Accurate measurements are difficult. On the contrast images I think that wall thickness is about 11 mm just above the upper limits of normal Systolic function is normal with an ejection fraction of 55-60%. I believe there is mild hypokinesis at the base of the inferior wall and inferior septum. This could be normal variant Indeterminate diastolic function. Right Ventricle Right ventricle was not well visualized. Systolic function is mildly reduced. Left Atrium Left atrium cavity size is normal. Right Atrium Right atrium cavity is normal. IVC/SVC Inferior vena cava structure is normal. RA pressures is estimated to be 8 mmHg (IVC diameter <21 mm and decreases <50% during inspiration). Mitral Valve The leaflets are mildly thickened. There is annular calcification. There is trace regurgitation. There is no evidence of mitral valve stenosis. Tricuspid Valve Tricuspid valve structure is normal. There is trace regurgitation. There is no evidence of tricuspid valve stenosis. Aortic Valve The aortic valve was not well visualized. Number of aortic valve cusps cannot be determined. There is no regurgitation or stenosis. Pulmonic Valve Visualized portions of the pulmonic valve appear normal. No significant pulmonic valve regurgitation. There is no evidence of pulmonic valve stenosis. Ascending Aorta The Sinus of Valsalva is (3.9 cm). The ascending aorta is (3.5 cm). Pericardium Pericardium appears normal. There is no pericardial effusion. Study Details Overall the study quality was suboptimal. Definity contrast was given to enhance imaging. Study was difficult due to: poor endocardial visualization. Wall Scoring Baseline Score Index: 2.20 The following segments are dyskinetic: apical septal. The following segments are hypokinetic: basal anterior, basal anteroseptal, basal inferoseptal, basal inferior, basal inferolateral, mid anterior, mid anteroseptal, mid inferoseptal and mid inferior. Other segments could not be evaluated. us Hair Miller MD CV ECHO PROCEDURES Final Result from Last 3 Months Insurance MEDICARE [facility] Care Teams Manager Content Relationship Specialty Start Date End Date Jaycob Berger DO [address] [facility] [address] [place], [place] PCP - General 03/11/16
[2024-10-16 11:14] LABS: Prostate Specific Antigen 0.47 ng/mL (<0.05-4.0)
[2024-10-16 11:26] LABS: Alanine Aminotransferase 35 U/L (0-40); Albumin Level 4.1 g/dL (3.5-5.0); Alkaline Phosphatase 77 U/L (39-117); Anion Gap 14 (12-20); Aspartate Amino Transferase 31 U/L (5-37); Bilirubin Total 0.5 mg/dL (0.0-1.0); Blood Urea Nitrogen 14 mg/dL (9-16); Calcium 9.4 mg/dL (8.4-10.2); Carbon Dioxide 23 mmol/L (22-29); Chloride 107 mmol/L (96-108); Cholesterol 115 mg/dL (<200); Estimated Glomerular Filt Rate > 60; Glucose Random 235 mg/dL (60-115); HDL Cholesterol 33 mg/dL (>40); LDL Cholesterol Calculated 50 mg/dL (<100); Potassium 4.2 mmol/L (3.3-5.1); Sodium 140 mmol/L (135-145); Total Protein 6.7 g/dL (6.5-8.0); Triglycerides 162 mg/dL (<150)
== END 2024-10-16 09:53 | disposition home or self-care (01) ==
LOC: HO.LABR 09:52
PROVIDERS: PCP Internal Medicine; Visit Provider Physician Assistant
DX: R97.20 Elevated prostate specific antigen [PSA] (principal); E11.41 Type 2 diabetes mellitus with diabetic mononeuropathy; E11.65 Type 2 diabetes mellitus with hyperglycemia
CPT/HCPCS: 36415; 80053; 80061; 83036; 84153

== ENCOUNTER 2025-01-23 10:19 | Outpatient (REF) | payer MEDICARE, SELFPAY ==
--- OUTSIDE RECORDS SUMMARY | 2025-01-19 09:30 | XMS_ITS | Encounter Summary ---
Author Organization [facility] Address [address] [place] [address] Care Team Providers Care Gamemaster Name Role Phone Jaycob Berger DO Primary Care Provider [phone] Reason for Visit * Reason Comments EKG only BP check Encounter Details Date Type Department Care Team (Latest Contact Info) Description 01/19/2025 9:30 AM EDT Clinical Support [facility] - [address] [facility] 154 [place] [address] Coronary artery disease involving nez perce coronary artery of nez perce heart without angina pectoris (Primary Dx) Social History Tobacco Use Types Packs/Day Years Used Date Smoking Tobacco: Former Smokeless Tobacco: Never Alcohol Use Standard Drinks/Week Comments Yes 6 (1 standard drink = 0.6 oz pur e alcohol) Sex and Gender Information Value Date Recorded Sex Assigned at Not on file Legal Sex Male 3:35 AM EST Gender Identity Not on file Sexual Orientation Not on file documented as of this encounter Last Filed Vital Signs Vital Sign Reading Time Taken Comments Blood Pressure 122/60 01/19/2025 9:44 AM EDT Pulse 62 01/19/2025 9:44 AM EDT Temperature - - Respiratory Rate - - Oxygen Saturation 96% 01/19/2025 9:44 AM EDT Inhaled Oxygen Concentration - - Weight - - Height - - Body Mass Index - - documented in this encounter Plan of Treatment Upcoming Encounters Date Type Department Care Team (Late st Contact Info) Description 01/31/2025 9:00 AM EDT Office Visit Orthopedic Surgery - [place] 250 175 [facility] 250 [place] [address] Bo Perez, DPM 175 [facility] 250 [place] [address] 02/07/2025 9:15 AM EDT Ancillary Procedure [facility] - [address] [place] [address] Scheduled Orders Name Type Priority Associated Diagnoses Orde r Schedule ECG 12 lead ECG Routine Coronary artery disease involving nez perce coronary artery of nez perce heart without angina pectoris Ordered: 01/19/2025 documented as of this encounter Visit Diagnoses Diagnosis Coronary artery disease involving nez perce coronary artery of nez perce heart without angina pectoris- Primary documented in this encounter Care Teams Gamemaster Relationship Specialty Start Date End Date Jaycob Berger DO [address] [place], [place] PCP - General 03/11/16 documented as of this encounter
--- OUTSIDE RECORDS SUMMARY | 2025-01-23 11:32 | XMS_ITS | Clinical Summary ---
Author Organization [address] [place] [address] [place] [phone] Phone Care Team Providers Care Circuit Court Clerk Name Role Phone Jaycob Berger DO Primary Care Provider [phone] Allergies Active Allergy Reactions Criticality Noted Date Comments Ketoconazole Nausea And Vomiting 06/07/2023 Leuprolide 06/07/2023 Valsartan 06/07/2023 Medications atorvastatin (LIPITOR) 80 mg tablet Take 1 Tablet by mouth daily. 02/19/20 23 Active SITagliptin phosphate (Januvia) 100 mg tablet [...] D-3) 5,000 Units tablet Take by mouth. Activ e hydrocortisone 1 % lotion Apply topically 2 (two) times a day. Foot rash 118 mL 05/02/19 25 Active aspirin 81 mg EC tablet Take 1 tablet (81 mg total) by mouth 1 (one) time each day. 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 Do not crush or chew. 30 each 11 06/13/19 25 026 Active ciclopirox (LOPROX) 0.77 % cream APPLY TO RASH ON THE FEET TWICE DAILY Discontinu ed(Discont inued by another clinician) nystatin (MYCOSTATIN) 100,000 unit/gram powder Apply topically 2 (two) times a day. 60 g 2 11/01/19 025 Additional Information Patient not taking.Reported on 12/26/2024 Active Problems Problem Noted Date Diagnosed Date 1st degree AV block 12/26/2024 Assessment & Plan (12/26/2024 12:27 PM EDT): Given the significance of his first degree block as well as what appears to now be Mobitz type 1 second degree AV block, we will have him stop his betablocker; we will have him take Toprol 25 mg once daily for 1 week followed by Toprol 25 mg every other day for 1 week, then stop completely. He will return to the office in 3 to 4 weeks for a repeat ECG as well as blood pressure check. We will continue to readdress this once his ECG is reviewed. In the interim, he is aware to notify the office for any new or worsening symptoms. Second degree atrioventricular block, Mobitz (ty pe) I 12/26/2024 Assessment & Plan (12/26/2024 12:27 PM EDT): Old [place] (myocardial infarction) 06/13/2024 Assessment & Plan (12/26/2024 12:27 PM EDT): History of four vessel coronary artery bypass gr aft 06/13/2024 Assessment & Plan (12/26/2024 12:27 PM EDT): Class 2 severe obesity due t o excess calories with serious comorbidity and body mass index (BMI) of 35.0 to 35.9 in adult 03/15/2024 Assessment & Plan (12/26/2024 12:27 PM EDT): Patient is obese. Approaches towards weight loss are discussed, including burning more calories than one takes in by portion control and regular exercise with an emphasis on duration rather than intensity. Sleep disturbance 02/18/2023 Overview (03/15/2024): Last Assessment [...] study. Diabetes 1.5, managed as type 2 ([facility] V24, [facility] V28) 08/04/2021 Coronary artery disease [...] rest, or if they were to faint. Assessment & Plan (12/26/2024 12:27 PM EDT): The patient remains active within his current functional capacity and offers no ischemic symptoms. As above, we are stopping metoprolol due to notable first and second-degree AV block on ECG today; he is aware that in doing so, should he experience any recurrent anginal symptoms he should notify our office immediately, seeking urgent medical attention appropriate. We will not make any other changes to his cardioprotective medical therapies; continue atorvastatin and daily ASA. We discussed cardiac risk reduction through lifestyle modifications with healthy diet, and weight management. The patient was advised to seek emergent medical attention by calling 911 if they were to develop severe dyspnea, chest pain that did not resolve with rest, or if they were to faint. Orders: ECG 12 lead Hyperlipidemia LDL goal <55 01/06/2021 Overview (03/15/2024): Last Assessment & Plan: He tells me his PCP monitors his, his goal LDL is less than 70. Assessment & Plan (12/26/2024 12:27 PM EDT): LDL goal for this patient has a history of coronary artery disease as well as diabetes is less than 55; most recent lipid panel we have on file is from 07/16/2021 showing an LDL of 54. He reports that his PCP, Dr. Berger, typically monitors his cholesterol regularly; we were able to obtain a more recent lipid panel from 12/14/2023 showing an LDL of 72. If LDL not at goal on next check with PCP, would recommend addition of ezetimibe to current regimen of atorvastatin 80 mg daily. Orders: Vascular US duplex carotid bilateral; Future Essential hypertension 01/06/2021 Overview (03/15/2024): Last Assessment & Plan: Blood pressure remains worked well controlled on current medical therapies; we will make no changes today. We will await lab results the PCP has been monitoring and make any changes as appropriate. Assessment & Plan (12/26/2024 12:27 PM EDT): Blood pressure is favorable on current medical therapy; however, as above we are stopping metoprolol due to his AV block. He is aware that in doing so, we may need to start an additional antihypertensive. When he returns in 3 to 4 weeks for his repeat ECG, we will check a blood pressure as well. He does note a history of some whitecoat hypertension; unfortunately, he recently discarded his blood pressure cuff as he did not think it was working correctly. I have asked that he obtain another blood pressure cuff, checking his blood pressure once daily and bring his cuff with him to his blood pressure check in approximately 4 weeks. As long as his blood pressure cuff is correlating well, we can trust that his home readings are accurate. We will make any further adjustments to his antihypertensive regimen at that point. The patient verbalized understanding and agreement with this plan. Encounters Date Type Department Care Team Description 01/19/2025 9:30 AM EDT Clinical Support [facility] - [facility] [address] [facility] 154 [place] [phone] Coronary artery disease involving [place] coronary artery of [place]nak heart without angina pectoris (Primary Dx) 12/26/2024 8:40 AM EDT Office Visit [facility] - [facility] 102 300 [facility] 102 [place] [phone] Mignon Martinez NP 1st degree AV block (Primary Dx); Second degree atrioventricular block, Mobitz (type) I; Coronary artery disease involving [place] coronary artery of [place] heart without angina pectoris; [place] (myocardial infarction); History of four vessel coronary artery bypass graft; Hyperlipidemia LDL goal <55; Essential hypertension; Class 2 severe obesity due to excess calories with serious comorbidity and body mass index (BMI) of 35.0 to 35.9 in adult ([facility] V24, [facility] V28); Bilateral carotid bruits 10/31/2024 8:30 AM EDT Office Visit Orthopedic Surgery - [place] 250 [address] [facility] [address] [place] [phone] Bo Perez DPM Other eczema (Primary Dx); Tinea pedis of both feet; Dermatophytosis of nail; Pain in toe of right foot; Pain in toe of left foot; Diabetic mononeuropathy simplex (CMS/HCC V24, CMS/HCC V28) from Last 3 Months Social History [...] EDT Inhaled Oxygen Concentration - - Weight 117 kg (258 lb 12.8 oz) 12/26/2024 8:21 A M EDT Height 182.9 cm (6') 12/26/2024 8:21 AM EDT Body Mass Index 35.1 12/26/2024 8:21 AM EDT Plan of Treatment Upcoming Encounters Date Type Department Care Team (Late st Contact Info) Description 01/31/2025 9:00 AM EDT Office Visit Orthopedic Surgery - [place] 250 175 [facility] 250 [place] [address] Bo Perez, DPM [address] [phone] 02/07/2025 9:15 AM EDT Ancillary Procedure [facility] - [facility] [address] [facility] [address] [place] [phone] Health Maintenance Due Date Last Done Comments Diabetes: Annual GFR (Glomerular Filtration Rate) 1945 Diabetes: Annual Foot Exam 1955 Diabetes: Annual Retina Eye Exam 1955 Zoster Vaccines (2 of 3) 03/01/2012 01/05/2012 RSV Immunization Adult Patients (1 - 1-dose 75+ series) 02/12/2020 Cholesterol Screening (Lipid Panel) 03/29/2022 Falls Risk Assessment 03/29/2022 Hepatitis C Screening 03/29/2022 Medicare Annual Wellness Visit 03/29/2022 Social Influencers of Health Screening 03/29/2022 Hypertension/CHF/CAD Annual BMP Blood Test 04/05/2022 Diabetes: Annual Urine Albumin-Creatinine Ratio (uACR) 04/09/2022 Diabetes: Blood Sugar Control Test (HGBA1C) 04/09/2022 Depression Screening 04/26/2024 COVID-19 Vaccine ( season) 2024 01/22/2022, 12/13/2020, 07/27/2020, Additional history exists Influenza Vaccine (#1) 2024 , 01/22/2022, 01/23/2021, Additional history exists DTaP,Tdap,and Td [...] Procedure Name Priority Date/Time Associated Diagnosis Comments ECG 12-LEAD Routine 12/26/2024 12:28 PM EDT Coronary artery disease involving che[place]nak coronary artery of chefornak heart without angina pectoris from Last 3 Months Results * ECG 12 lead (12/26/2024 12:28 PM EDT) Ventricular Rate ECG 63 BPM GEMUSE Atrial Rate 76 BPM GEMUSE P-R Interval 360 ms GEMUSE QRS Duration 94 ms GEMUSE Q-T Interval 392 ms GEMUSE QTc 401 ms GEMUSE P Wave [place] 42 degrees GEMUSE R [place] -22 degrees GEMUSE T [place] 127 degrees GEMUSE ECG Interpretation Sinus rhythm with first degree AV block and Mobitz type I second degree AV block Inferior infarct (cited on or before 13-JUN-2024) ST and T wave abnormality, consider lateral ischemia Abnormal ECG When compared with ECG of 13-JUN-2024 14:23, Premature atrial complexes are now Present Borderline criteria for Anterior infarct are no longer Present Confirmed by Declan HAWLEY, DANYELL ([id number]) on 12/28/2024 10:35:30 AM GEMUSE 12/26/2024 8:59 AM EDT 12/28/2024 10:35 AM EDT Mignon Martinez ASPHALT STILL OPERATOR ECG ORDERABLES Edite d Result - Final GEMUSE from Last 3 Months Insurance MEDICARE [facility] Care Teams Circuit Court Clerk Relationship Specialty Start Date End Date Jaycob Berger DO [address] [facility] [address] [place], [place] PCP - General 03/11/16
[2025-01-23 11:54] LABS: Alanine Aminotransferase 29 U/L (0-40); Albumin Level 4.2 g/dL (3.5-5.0); Alkaline Phosphatase 75 U/L (39-117); Anion Gap 13 (12-20); Aspartate Amino Transferase 33 U/L (5-37); Blood Urea Nitrogen 13 mg/dL (9-16); Calcium 9.4 mg/dL (8.4-10.2); Carbon Dioxide 24 mmol/L (22-29); Chloride 106 mmol/L (96-108); Cholesterol 124 mg/dL (<200); Estimated Glomerular Filt Rate > 60; HDL Cholesterol 37 mg/dL (>40); Potassium 4.3 mmol/L (3.3-5.1); Sodium 139 mmol/L (135-145); Total Protein 6.8 g/dL (6.5-8.0); Triglycerides 121 mg/dL (<150)
[2025-01-23 11:56] LABS: Prostate Specific Antigen 0.49 ng/mL (<0.05-4.0)
== END 2025-01-23 10:20 | disposition home or self-care (01) ==
LOC: HO.LAB 10:19
PROVIDERS: PCP Physician Assistant; Visit Provider Physician Assistant
DX: E11.65 Type 2 diabetes mellitus with hyperglycemia (principal); E11.41 Type 2 diabetes mellitus with diabetic mononeuropathy; R97.20 Elevated prostate specific antigen [PSA]; Z12.5 Encounter for screening for malignant neoplasm of prostate
CPT/HCPCS: 36415; 80053; 80061; 83036; 84153

== ENCOUNTER 2025-04-16 15:31 | Outpatient (REF) | payer MEDICARE, SELFPAY ==
[2025-04-16 17:43] LABS: Alanine Aminotransferase 50 U/L (0-40); Albumin Level 4.3 g/dL (3.5-5.0); Alkaline Phosphatase 81 U/L (39-117); Anion Gap 16 (12-20); Aspartate Amino Transferase 40 U/L (5-37); Blood Urea Nitrogen 17 mg/dL (9-16); Calcium 9.4 mg/dL (8.4-10.2); Carbon Dioxide 20 mmol/L (22-29); Chloride 108 mmol/L (96-108); Estimated Glomerular Filt Rate > 60; Potassium 4.1 mmol/L (3.3-5.1); Sodium 140 mmol/L (135-145); Total Protein 6.9 g/dL (6.5-8.0)
--- OUTSIDE RECORDS SUMMARY | 2025-04-16 18:34 | XMS_ITS | Clinical Summary ---
Author Organization [address] [place] [address] [place] [phone] Phone Care Team Providers Care Aviation Warfare Systems Operator Name Role Phone Jaycob Berger DO Primary Care Provider [phone] Allergies Active Allergy Reactions Criticality Noted Date Comments Ketoconazole Nausea And Vomiting 06/07/2023 Leuprolide 06/07/2023 Valsartan 06/07/2023 Medications atorvastatin (LIPITOR) 80 mg tablet Take 1 Tablet by mouth daily. Active SITagliptin phosphate (Januvia) 100 mg tablet [...] times a day. Foot rash 118 mL Active Additional Information Patient not taking.Reported on 01/31/2025 aspirin 81 mg EC tablet Take 1 tablet (81 mg total) by mouth 1 (one) time each day. 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 Do not crush or chew. 30 each 11 5 026 Active terbinafine (LamISIL) 250 mg tablet Take 1 tablet (250 mg total) by mouth 1 (one) time each day. 45 tablet 5 025 Active Problems Problem Noted Date Diagnosed Date [...] & Plan (12/26/2024 12:27 PM EDT): Old [place] (myocardial infarction) 06/13/2024 Assessment & Plan (12/26/2024 [...] study. Diabetes 1.5, managed as type 2 08/04/2021 Coronary artery disease 01/06/2021 Overview (03/15/2024): [...] Encounters Date Type Department Care Team Description 02/28/2025 Results Follow-Up [facility] 101 300 [facility] 101 [place] [address] Mignon Martinez NP 02/07/2025 9:15 AM EDT Ancillary Procedure [facility]iology [facility] 101 300 [facility] 101 [place] [address] Hyperlipidemia LDL goal <55; Bilateral carotid bruits 01/31/2025 9:00 AM EDT Office Visit Orthopedic Surgery - [place] 250 175 [facility] 250 [place] [phone] Bo Perez, DPM Tinea pedis of both feet (Primary Dx); Dermatophytosis of nail; Other eczema; Pain in toe of right foot; Pain in toe of left foot; Diabetic mononeuropathy simplex (CMS/[facility] V24, CMS/HCC V28) 01/19/2025 9:30 AM EDT Office Visit [facility]iology [facility] [address] [facility] 154 [place] [address] Mignon Martinez NP Coronary artery disease involving [place] coronary artery of [place] heart without angina pectoris (Primary Dx) from Last 3 Months Social History Tobacco [...] on file Sexual Orientation Not on file Last Filed Vital Signs Vital Sign Reading [...] Upcoming Encounters Date Type Department Care Team ([facility] st Contact Info) Description 05/03/2025 1:15 PM EST Office Visit Orthopedic Surgery - [place] [address] [address] Bo Perez, DPM [address] [phone] Health Maintenance Due Date Last Done Comments Diabetes: Annual GFR (Glomerular Filtration Rate) 1945 Diabetes: Annual Foot Exam 1955 Diabetes: Annual Retina Eye Exam 1955 Zoster Vaccines (2 of 3) 03/01/2012 01/05/2012 RSV Immunization Adult Patients (1 - 1-dose 75+ series) 02/12/2020 Cholesterol Screening (Lipid Panel) 03/29/2022 Falls Risk Assessment 03/29/2022 Medicare Annual Wellness Visit 03/29/2022 Social Influencers of Health Screening 03/29/2022 Hypertension/CHF/CAD Annual BMP Blood Test 04/05/2022 Diabetes: Annual Urine Albumin-Creatinine Ratio (uACR) 04/09/2022 Diabetes: Blood Sugar Control Test (HGBA1C) 04/09/2022 Depression Screening 04/26/2024 COVID-19 Vaccine ( season) 2024 01/22/2022, 12/13/2020, 07/27/2020, Additional history exists Influenza Vaccine (#1) 2024 2, 01/22/2022, 01/23/2021, Additional history exists DTaP,Tdap,and Td [...] Procedure Name Priority Date/Time Associated Diagnosis Comments VAS US DUPLEX CAROTID BILATERAL Routine 02/07/2025 10:06 AM EDT Hyperlipidemia LDL goal <55 Bilateral carotid bruits from Last 3 Months Results * Vascular US duplex carotid bilateral (02/07/2025 10:06 AM EDT) Left CCA dist sys 120 cm/s CV VAS LAB Left CCA dist velazquez 26 cm/s CV VAS LAB LEFT COMMON CAROTID ARTERY MID S 143 cm/s CV VAS LAB LEFT COMMON CAROTID ARTERY MID D 25 cm/s CV VAS LAB Left CCA prox sys 162 cm/s CV VAS LAB Left CCA prox velazquez 22 cm/s CV VAS LAB Left ICA dist sys 140 cm/s CV VAS LAB Left ICA dist velazquez 36 cm/s CV VAS LAB Left ICA mid sys 144 cm/s CV VAS LAB Left ICA mid velazquez 29 cm/s CV VAS LAB Left ICA prox sys 114 cm/s CV VAS LAB Left ICA prox velazquez 22 cm/s CV VAS LAB Left ECA sys 120 cm/s CV VAS LAB Left Prox Subclavian PSV 190 cm/s CV VAS LAB Left vertebral sys 78 cm/s CV VAS LAB Right cca dist sys 105 cm/s CV VAS LAB Right CCA dist velazquez 22 cm/s CV VAS LAB RIGHT COMMON CAROTID ARTERY MID S 151 cm/s CV VAS LAB RIGHT COMMON CAROTID ARTERY MID D 17 cm/s CV VAS LAB Right CCA prox sys 183 cm/s CV VAS LAB Right CCA prox velazquez 23 cm/s CV VAS LAB Right ICA dist sys 87 cm/s CV VAS LAB Right ICA dist velazquez 21 cm/s CV VAS LAB Right ICA mid sys 74 cm/s CV VAS LAB Right ICA mid velazquez 21 cm/s CV VAS LAB Right ICA prox sys 70 cm/s CV VAS LAB Right ICA prox velazquez 17 cm/s CV VAS LAB Right eca sys 93 cm/s CV VAS LAB RIGHT EXTERNAL CAROTID ARTERY D 15 cm/s CV VAS LAB Right Prox Subclavian PSV 154 cm/s CV VAS LAB Right vertebral sys 44 cm/s CV VAS LAB Anatomical Region Laterality Modality Vascular, Abdomen Ultrasound Narrative 02/22/2025 10:40 PM EDT RIGHT. 1. There is atherosclerotic plaque in the right carotid system as noted below. 2. There is a < 50% stenosis in the right internal carotid artery based on Doppler velocity. 3. The subclavian and vertebral arteries have normal Doppler flow patterns. LEFT. 1. There is atherosclerotic plaque in the left carotid system as noted below. 2. There is a < 50% stenosis in the left internal carotid artery based on Doppler velocity. Of note, there is significant acoustic shadowing in the left ICA which may lead to underestimation of the degree of stenosis. 3. The subclavian and vertebral arteries have normal Doppler flow patterns. Of note, the visualization of the left arterial artery was suboptimal. The interpretation of this study was done following the diagnostic criteria recommendations contained in the IAC updated recommendations for carotid stenosis interpretation criteria document published by IAC in February 2023. Right Carotid The CCA has mild heterogeneous plaque. The ICA has mild heterogeneous plaque. The ECA has mild heterogeneous plaque. The subclavian artery waveforms are triphasic. 134/68 Vertebral flow is antegrade. Left Carotid The CCA has mild heterogeneous plaque. The ICA has mild heterogeneous plaque. The ECA has mild heterogeneous plaque. The subclavian artery waveforms are triphasic. 140/62 Vertebral flow is antegrade. Tree Topper Details A mcnair scale, color and doppler analysis ultrasound was performed. During the study longitudinal and transverse views were obtained. Pulsed wave doppler was performed. Overall the study quality was adequate. Mignon Martinez NP CV VASCULAR PROCEDURE S Final Result from Last 3 Months Insurance MEDICARE [facility] Care Teams Aviation Warfare Systems Operator Relationship Specialty Start Date End Date Jaycob Berger DO [address] [facility] [address] [place], [place] PCP - General 03/11/16
--- OUTSIDE RECORDS SUMMARY | 2025-04-16 18:34 | XMS_ITS | Continuity of Care Document ---
Author Organization [facility], [facility] Address [address] [place] [address] Assessment No assessment recorded. Plan of Treatment Reminders Order Date Submit Date Provider Last Modified By Organization Details Last Modified Time Details Appointments FOLLOW UP 2025 01:30P M MELVIN ELLIOTT Not available Not available Not available Lab None recorded . Referral None recorded . Procedures None recorded . Surgeries None recorded . Imaging None recorded . Medication Orders None recorded . Patient TargetsNo targets recorded. Patient InstructionsNo instructions recorded. Reason for Referral None Reported. Results Created Date Observation Date Name Description Value Unit Range Abnormal Flag Note LastModifiedBy Organization Detail LastModifiedTime 02/27/2002/07/2025 [place], [facility] gabi bocanegra lar No observ ation record ed. [email or web address] [facility] (Human Resources) [id number] [place], [address], 02/26/2025 14:11:24 Result Notes None recorded. Problems Name Problem SNOMED Code Status Onset Date Resolution Date Notes Provider Name and Address Organization Details Recorded Time Type 2 diabetes mellitus 70708285 Active 2017 MELVIN ELLIOTT [address], [place], [address], [facility] 5 10:25:17 Fracture of ankle 68782338 Active 2017 2005 Not Available [facility] 4 00:30:26 Prostate specific antigen above referenc e range 929065807 Active 2017 urology referral Not Available [facility] 4 00:30:26 Carcinom a of prostate 688246958 Active 2017 Not Available [facility] 4 00:30:26 Hyperlip idemia 32491468 Active 2017 Not Available [facility] 4 00:30:26 Onychomy cosis 118854462 Active 2017 Not Available [facility] 4 00:30:26 Coronary arterios clerosis 14011423 Active 2017 Not Available [facility] 4 00:30:26 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 on 194319876 Active 2017 inferior/ lateral wall 03/11/16 Not Available [facility] 4 00:30:26 [facility] 52296355 Active 2017 MELVIN ELLIOTT [address] [place], [address], [facility] 5 10:30:26 Abnormal gait 55927593 Active 2022 Not Available [facility] 4 00:30:26 Irritabl e bowel syndrome 31083426 Active 2022 Not Available [facility] 4 00:30:26 Diabetes mellitus 28868906 Active 2022 Not Available [facility] 4 00:30:27 Diabetic peripher al neuropat hy 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 Please review these documents and add these problems to the patient's chart manually as needed. Problem Notes None recorded. Procedures Surgical History Date Name Laterality Status Provider Name and Address Organization Details Recorded Time CABG completed Radha Bush [facility] 10/19/2017 13:53:10 Imaging Results None recorded. Procedure Notes None recorded. Medical Equipment None Reported. Allergies Allergen ID Allergen Name Allergen Category Reaction Reaction Severity Criticality Documentation Date Start Date Code Code System Note Provider Name and Address Organization Details Recorded Time 96545 leuprolid e medicatio n Not available Not available Not available 04/09/20252023 16813 RxNorm Not Available [facility] - External Data Service - prod 5 12:47:28 3663 ketoconaz ole medicatio n Not available Not available Not available 05/01/2019 6135 RxNorm [facility]ist [facility] 15:18[facility]50 3664 Lupron medicatio n Not available Not available Not available 05/01/201905449 2 RxNorm [facility] 0 15:22:07 5971 valsartan medicatio n diarrhea Not available Not available 12/16/2021 60155 RxNorm MELVIN ELLIOTT [address] [place] [address], [phone] 2 09:46:03 Medications Name Sig Start Date Stop Date Status Note LastModified by Organization Details LastModified Time metformin 500 mg tablet 01/19 completed Not Available Not Available Not Available bicalutam rafiq 50 mg tablet Take 1 tablet every day by oral route. 03/30 completed Not Available Not Available Not Available atorvasta tin 80 mg tablet TAKE 1 TABLET BY MOUTH DAILY active Not Available Not Available No t Available doxycycli ne hyclate 100 mg capsule TAKE 1 CAPSULE BY MOUTH TWICE DAILY WITH FOOD AND WATER FOR 5 DAYS 11/25 completed Not Available Not Available Not Available azithromy koki 250 mg tablet TAKE 2 TABLETS (500 MG) BY ORAL ROUTE ONCE DAILY FOR 1 DAY THEN 1 TABLET (250 MG) BY ORAL ROUTE ONCE DAILY FOR 4 DAYS 08/29 /2023 completed Not Available Not Available Not Available glyburide 5 mg tablet TAKE 1 TABLET BY MOUTH DAILY IN THE MORNING WITH BREAKFAS T 05/01 completed Not Available Not Available Not Available glipizide ER 10 mg tablet, extended release 24 hr TAKE 1 TABLET BY MOUTH AT NIGHT active Not Available Not Available No t Available glipizide 10 mg tablet TAKE 1 TABLET BY MOUTH EVERY DAY active Not Available Not Available No t Available valsartan 80 mg tablet TAKE 1 TABLET BY MOUTH DAILY 12/16 completed Not Available Not Available Not Available triamcino lone acetonide 0.1 % topical cream APPLY TWICE DAILY TO RASH OF THE RIGHT FOOT X 2 WEEKS NEEDED 10/25 completed Not Available Not Available Not Available amoxicill in 875 mg tablet TAKE 1 TABLET BY MOUTH EVERY 12 HOURS FOR 7 DAYS 01/29 completed Not Available Not Available Not Available [...] completed Not Available Not Available Not Available clotrimaz ole-betam ethasone 1 %-0.05 % topical cream APPLY TOPICALL Y TO THE AFFECTED AREA TWICE DAILY 01/29 completed Not Available Not Available Not Available metoprolo l tartrate 50 mg tablet TAKE 1 TABLET BY MOUTH TWICE DAILY 01/29 completed Not Available Not Available Not Available mupirocin 2 % topical ointment APPLY TO SURGICAL SITE TWICE DAILY UNTIL FOLLOW UP APPOINTM ENT 01/29 completed Not Available Not Available Not Available zolpidem 5 mg tablet TAKE 1 [...] 2 PUFFS BY MOUTH EVERY 4 HOURS 01/29 completed Not Available Not Available Not Available ketoconaz ole 2 % topical cream [...] TO RASH ON THE FEET TWICE DAILY 01/29 completed Not Available Not Available Not Available Aspir-81 Take one tablet once a day active Not Available Not Available No t Available Januvia 100 mg tablet TAKE 1 TABLET BY MOUTH EVERY DAY active Not Available Not Available No t Available Lantus Solostar U-100 Insulin 100 unit/mL (3 mL) subcutane ous pen ADMINIST ER 2 UNITS UNDER THE SKIN EVERY DAY IN THE EVENING 2022 active DOES NOT NEED ANY REFILLS ALL SET; HAS FOUR AT HOME Not Available Not Available Not Available hydrocort isone butyrate 0.1 % lotion APPLY TOPICALL Y TWICE DAILY ON FOOT RASH 01/29 completed Not Available Not Available Not Available Vitamin [...] 2nd Gen Pen Needle 32 gauge x USE DIRECTED active Not Available Not Available No t Available Rybelsus 7 mg tablet 09/16 completed Not Available Not Available Not Available Fluzone High-Dose Quad (PF) 240 mcg/0.7 mL IM syringe ADM 0.7ML IM UTD 03/29 completed Not Available Not Available Not Available Ozempic 1 mg/dose (4 mg/3 mL) subcutane ous pen injector INJECT 1.5MG UNDER THE SKIN ONCE EVERY WEEK 07/05 completed Not Available Not Available Not Available Ozempic 2 mg/dose (8 mg/3 mL) subcutane ous pen injector Inject 2 mg every week by subcutan eous route as directed for 30 days. 2024 active Not Available Not Available Not Avai lable Ozempic 0.25 mg or 0.5 mg (2 mg/3 mL) subcutane ous pen injector INJECT 0.5 MG UNDER THE SKIN EVERY WEEK 11/25 completed Not Available Not Available Not Available Klayesta 100,000 unit/gram topical powder APPLY TOPICALL Y TWICE DAILY 02/06 completed Not Available Not Available Not Available Vitals Date Recorded Body height Body mass index (BMI) Body weight Oxygen saturation Heart rate Systolic And Diastolic Provider Name and Address Organization Details Last Updated DateTime 5 176.53 cm 37.7 kg/m2 865280. 42 g 98 % 78 /min 128/68 mm[Hg] [facility] 5 10:06:21 Social History Question Answer Notes LastModified by We Clusterat ion Details LastModified Time Tobacco Smoking Status Former Smoker Not Available [facility] 02/27/2020 03:36:23 What Was The Date Of Your Most Recent Tobacco Screening? 05/01/2024 [email or web address] Information not available 05/01/2024 How Many Years Have You Smoked Tobacco? 50 [id number] Information not available 02/27/2020 Sex: Unknown Functional Status None recorded. Mental Status None recorded. Family History Nothing Reported. Medical History No medical history recorded. Immunizations Vaccine Type Date Status Note Provider Nam e and Address Organization Details Recorded Time Pneumococcal conjugate PCV 13 8 completed Not Available [facility] 05/17/2023 00:30:27 COVID-19, mRNA, LNP-S, bivalent, PF, 10 mcg/0.2 mL 1 completed Not Available [facility] 05/17/2023 00:30:27 COVID-19, mRNA, LNP-S, bivalent, PF, 10 mcg/0.2 mL 2 completed Not Available [facility] 05/17/2023 00:30:27 influenza, unspecified formulation 2 completed Not Available [facility] 05/17/2023 00:30:27 Influenza, split virus, quadrivalent, preservative 9 completed Not Available [facility] 05/17/2023 00:30:27 pneumococcal polysaccharide PPV23 4 completed Not Available [facility] 05/17/2023 00:30:27 Influenza, split virus, quadrivalent, preservative 7 completed Not Available [facility] 05/17/2023 00:30:27 zoster live 2 completed Not Available [facility] 05/17/2023 00:30:27 Influenza, split virus, quadrivalent, preservative 0 completed Not Available [facility] 05/17/2023 00:30:27 COVID-19, mRNA, LNP-S, PF, 100 mcg/0.5mL dose or 50 mcg/0.25mL dose 1 completed Not Available [facility] 05/17/2023 00:30:27 COVID-19, mRNA, LNP-S, PF, 100 mcg/0.5mL dose or 50 mcg/0.25mL dose 1 completed Not Available [facility] 05/17/2023 00:30:27 Past Encounters Encounter ID Performer Location Encounter Start Date Encounter Closed Date Diagnosis/Indication Diagnosis SNOMED-CT Code Diagnosis ICD10 Code Diagnosis IMO Codes Diagnosis Note [id number] Jaycob Berger DO [facility] [address],[place] [address] 01/29/2025 09:53:56 01/29/2025 11:01:37 Type 2 diabetes mellitus 75304362 E11.9 Z79.4 78717152 continue on medication as prescribed with dietary changestry ing to adjust for hypoglycem ic episodes Essential hypertension 86860618 I10 stable, excellentf ollow with cardiology regularly, every 6 mos Health Concerns Section Related Observation LastModified by Organization Detai ls LastModified Time None Recorded Concern Status LastModified by Organization Details LastModified Time None Recorded Payers Encounter Date Sequence Insurance Name Policy Number Policy Aguilar Covered Member ID Aguilar Member ID Guarantor Name 01/29/2025 1 [place]: [employer] Obi Amaya [id number] Obi Amaya 01/29/2025 2 [facility] OPTIONS - PLAN T2 (INDEMNITY) Obi Amaya [id number] Obi Amaya Notes Date Note Type Note Provider Name a nd Address Organization Details Recorded Time 01/29/2025 text/html ROS as noted in the HPI f/u 3 mos check the patient needs a new order from the [facility] 3 plus the order was placed a month ago with no response from his insurance or the pharmacy the patient was getting it from [facility], then they stoppedwasn't communicated through the [place] correctly to leona resubmit to previous [facility] which worked well for patient the patient is been doing great on the ozempiche still occasionally needs to lantus, but very rarelythe patient is also taking the januvia and the glipizidehis numbers have been great, sig improvement from a few years ago that was over 10% weight is down HTN: today in the office the patient BP is 128/ the patient is doing well on the BP medication with no side effects and no adjustment of their medications needed today at the appointment well-controlled on medication denies chest pain, sob, ankle swelling, orthopnea, palpitations MELVIN ELLIOTT [address] [facility], [place], [address], [facility] 01/29/2025 10:59:43
--- OUTSIDE RECORDS SUMMARY | 2025-04-16 18:34 | XMS_ITS | Data Portability ---
Author Organization [facility], Telehealth Patient Home Address [address] [place] [address] Assessment Encounter Date Assessment Date Assessment LastModified by Organization Details LastModified Time 12/21/2023 12/21/2023 Patient agreed and verbally consents to this audio and video Telehealth appt via a secure platform [email or web address] Not available 12/21/2023 13:40:50 Plan of Treatment Reminders Order Date Submit Date Provider Last Modified By Organization Details Last Modified Time Details Appointments FOLLOW UP 15 2025 01:30P MELVIN WONG Not available Not available Not available Lab CMP, serum or plasma 2024 025 [facility], [address] [place] [address], [id number], 10/25/2024 09:24:21 CMP, serum or plasma 2024 025 [facility], [address] [place] [address], [id number], 01/24/2025 13:09:06 hemoglobi n A1c, QN, blood 2024 025 [facility], [address] [place] [address], [id number], 10/25/2024 09:24:21 CBC w/ auto diff 2024 025 [facility], [address] [place] [address], [id number], 10/25/2024 09:24:21 CMP, serum or plasma 2024 025 [facility], [address] [place] [address], [id number], 01/24/2025 13:09:06 CMP, serum or plasma 2024 025 [facility], [address] [place] [address], [id number], 05/01/2024 11:31:31 lipid panel, blood 2024 025 [facility], [address] [place] [address], [id number], 05/01/2024 11:31:31 hemoglobi n A1c, QN, blood 2024 025 [facility], [address] [place] [address], [id number], 05/01/2024 11:31:31 CBC w/ auto diff 2024 025 [facility], [address] [place] [address], [id number], 05/01/2024 11:31:31 PSA, serum or plasma 2023 024 [facility], [address] [place] [address], [id number], 12/21/2023 13:55:55 HbA1c (hemoglob in A1c), blood 2023 024 [facility], [address] [place] [address], [id number], 12/21/2023 13:42:39 CMP, serum or plasma 2023 024 [facility], [address] [place] [address], 72940, 12/21/2023 13:42:39 lipid panel, blood 2023 024 [facility], [address] [place] [address], 39[address], 12/21/2023 13:42:39 hemoglobi n A1c, QN, blood 2023 024 [facility], [address] [place] [address], 61383, 04/18/2024 11:29:15 hemoglobi n A1c, QN, blood 2023 025 [facility], [address] [place] [address], 54315, 10/17/2024 11:50:59 hemoglobi n A1c, QN, blood 2024 025 [facility], [address] [place] [address], 61530, 10/17/2024 11:50:59 HbA1c (hemoglob in A1c), blood 2023 024 [facility], [address] [place] [address], [id number], 09/14/2023 10:28:25 CMP, serum or plasma 2023 024 [facility], [address] [place] [address], 31235, 09/14/2023 10:28:25 lipid panel, blood 2023 024 [facility], [address] [place] [address], [id number], 09/14/2023 10:28:24 hemoglobi n A1c, QN, blood 2023 024 [facility], [address] [place] [address], 611[address], 09/14/2023 10:28:24 Referral None recorded. Procedures None recorded. Surgeries None recorded. Imaging None recorded. Medication Orders Ozempic 2 mg/dose (8 mg/3 mL) subcutane ous pen injector 2024 025 [id number], [address] [place], [place], [id number], 05/01/2024 11:23:36 Ozempic 2 mg/dose (8 mg/3 mL) subcutane ous pen injector 2023 024 [facility] #47677, [address] [place] [address], [place], [id number], 12/21/2023 13:42:13 glipizide ER 10 mg tablet, extended release 24 hr 2023 024 [facility] #79465, [address] [place] [address], [place], [id number], 12/21/2023 13:45:59 Januvia 100 mg tablet 2023 024 [facility] #17009, [address], [place], [id number], 12/21/2023 13:45:59 metoprolo l tartrate 50 mg tablet [email or web address] [place] [address] [facility]18707, [address], [place], [id number], 01/29/2025 10:02:28 atorvasta tin 80 mg tablet 2023 024 [facility] #21140, [address] [place] [address], [place], [id number], 12/21/2023 13:43:27 Patient TargetsNo targets recorded. Patient InstructionsNo instructions recorded. Reason for Referral None Reported. Results Created Date Observation Date Name Description Value Unit Range Abnormal Flag Note LastModifiedBy Organization Detail LastModifiedTime 08/10/1908/09/2024 , echoc ardio gram No observ ation record ed. [email or web address] [place] [employer]) [place], [id number], 08/09/2024 13:12:42 02/27/20 25 02/07/2025 , [facility] mity, dust[place] No observ ation record ed. [email or web address] [place] [employer]) [place], [id number], 02/26/2025 14:11:24 Result Notes None recorded. Problems Name Problem SNOMED Code Status Onset Date Resolution Date Notes Provider Name and Address Organization Details Recorded Time Type 2 diabetes mellitus 11632611 Active 2017 MELVIN ELLIOTT [address] [place] [address], [address], [facility] 5 10:25:17 Fracture of ankle 99784881 Active 2017 2005 Not Available [facility] 4 00:30:26 Prostate specific antigen above referenc e range 631217054 Active 2017 urology referral Not Available [facility] 4 00:30:26 Carcinom a of prostate 590848223 Active 2017 Not Available [facility] 4 00:30:26 Hyperlip idemia 07181780 Active 2017 Not Available [facility] 4 00:30:26 Onychomy cosis 529468344 Active 2017 [facility] Available [facility] 4 00:30:26 Coronary arterios clerosis 54602682 Active 2017 Not Available [facility] 4 00:30:26 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 on 446405173 Active 2017 inferior/ lateral wall 03/11/16 Not Available [facility] 4 00:30:26 [facility] l hyperten alma 94050595 Active 2017 MELVIN ELLIOTT [address] [place], [address], [facility] 5 10:30:26 Abnormal gait 13263907 Active 2022 Not Available [facility] 4 00:30:26 Irritabl e bowel syndrome 53643452 Active 2022 Not Available [facility] 4 00:30:26 Diabetes mellitus 26671484 Active 2022 Not Available [facility] 4 00:30:27 Diabetic peripher al neuropat hy 514670802 Active 2022 Not Available [facility] 4 00:30:26 Acute bronchit is 97290669 Active 2022 Not Available [facility] 4 00:30:26 Insomnia 758771678 Active 2022 Not Available [facility] 4 00:30:26 Streptoc occal sore throat 37863147 Active 2024 MELVIN ELLIOTT [address] [place], [address], [facility] 5 10:44:32 Notes:Some problems listed i n Documents: #[id number], #[id number], #[id number], #[id number] could not be added to this patient's chart. Please review these documents and add these problems to the patient's chart manually as needed. Problem Notes None recorded. Procedures Surgical History Date Name Laterality Status Provider Name and Address Organization Details Recorded Time CABG completed Radha Bush [facility] 10/19/2017 13:53:10 Imaging Results None recorded. Procedure Notes None recorded. Medical Equipment None Reported. Allergies Allergen ID Allergen Name Allergen Category Reaction Reaction Severity Criticality Documentation Date Start Date Code Code System Note Provider Name and Address Organization Details Recorded Time 17491 leuprolid e medicatio n Not available Not available Not available 04/09/20252023 55530 RxNorm Not Available [place] - External Data Service - prod 5 12:47:28 3663 ketoconaz ole medicatio n Not available Not available Not available 05/01/2019 6135 RxNorm blist ered and faustino d [facility] 0 15:18:50 3664 Lupron medicatio n Not available Not available Not available 05/01/201920110 [address] [facility] 0 15:22:07 5971 valsartan medicatio n diarrhea Not available Not available 12/16/2021 79396 RxNorm MELVIN ELLIOTT [address] [place], [address], [facility] 2 09:46:03 Medications Name Sig [...] MOUTH EVERY 12 HOURS FOR 7 DAYS 10/06 /2025 completed Not Available Not Available Not Available [...] Not Available Not Available Fluzone High-Dose Quad 2020- (PF) 240 mcg/0.7 mL IM syringe ADM [...] (BMI) Body weight Heart rate Oxygen saturation Systolic And Diastolic Provider Name and Address Organization Details Last Updated DateTime 5 176.53 cm 39.3 kg/m2 162883. 02 g 75 /min 95 % 126/80 mm[Hg] Katarina Drew [facility] 5 10:53:02 Date Recorded Body height Body mass index (BMI) Body weight Heart rate Oxygen saturation Systolic And Diastolic Provider Name and Address Organization Details Last Updated DateTime 4 176.53 cm 37.5 kg/m2 142305. 11 g 78 /min 97 % 126/82 mm[Hg] Katarina Drew [facility] 4 10:07:06 Date Recorded Body height Body mass index (BMI) Body weight Heart rate Oxygen saturation Systolic And Diastolic Provider Name and Address Organization Details Last Updated DateTime 5 176.53 cm 37.7 kg/m2 934151. 42 g 75 /min 96 % 136/74 mm[Hg] WEST [facility] 5 08:57:34 Date Recorded Body height Body mass index (BMI) Body weight Oxygen saturation Heart rate Systolic And Diastolic Provider Name and Address Organization Details Last Updated DateTime 5 176.53 cm 37.7 kg/m2 144513. 42 g 98 % 78 /min 128/68 mm[Hg] Mary Swanson [facility] 5 10:06:21 Social History Question Answer Notes LastModified by Organizat ion Details LastModified Time Tobacco Smoking Status Former Smoker Not Available [facility] 02/27/2020 03:36:23 What Was The Date Of Your Most Recent Tobacco Screening? 05/01/2024 [email or web address] Information not available 05/01/2024 How Many Years Have You Smoked Tobacco? 50 [id number] Information not available 02/27/2020 Sex: Unknown Functional Status None recorded. Mental Status None recorded. Family History Nothing Reported. Medical History No medical history recorded. Immunizations Vaccine Type Date Status Note Provider Nam e and Address Organization Details Recorded Time Pneumococcal conjugate PCV 13 8 completed Not Available [facility] 05/17/2023 00:30:27 COVID-19, mRNA, LNP-S, bivalent, PF, 10 mcg/0.2 mL 1 completed Not Available [facility] 05/17/2023 00:30:27 COVID-19, mRNA, LNP-S, bivalent, PF, 10 mcg/0.2 mL 2 completed Not Available [facility] 05/17/2023 00:30:27 influenza, unspecified formulation 2 completed Not Available [facility] 05/17/2023 00:30:27 Influenza, split virus, quadrivalent, preservative 9 completed Not Available [facility] 05/17/2023 00:30:27 pneumococcal polysaccharide PPV23 4 completed Not Available [facility] 05/17/2023 00:30:27 Influenza, split virus, quadrivalent, preservative 7 completed Not Available [facility] 05/17/2023 00:30:27 zoster live 2 completed Not Available [facility] 05/17/2023 00:30:27 Influenza, split virus, quadrivalent, preservative 0 completed Not Available [facility] 05/17/2023 00:30:27 COVID-19, mRNA, LNP-S, PF, 100 mcg/0.5mL dose or 50 mcg/0.25mL dose 1 completed Not Available [facility] 05/17/2023 00:30:27 COVID-19, mRNA, LNP-S, PF, 100 mcg/0.5mL dose or 50 mcg/0.25mL dose 1 completed Not Available [facility] 05/17/2023 00:30:27 Past Encounters Encounter ID Performer Location Encounter Start Date Encounter Closed Date Diagnosis/Indication Diagnosis SNOMED-CT Code Diagnosis ICD10 Code Diagnosis IMO Codes Diagnosis Note [id number] DO [facility] [address] [facility] [address] 10/20/2017 09:14:05 10/20/2017 13:50:08 Type 2 diabetes mellitus 18470004 E11.65 not well controlled at current Hyperlipidemia 76781425 E78.5 very well controlled Venereal d isease screening 356969698 Z11.3 Essential hypertension 61406299 I10 well controlled [id number] DO [facility] [address] [facility],[place] [address] 01/19/2018 08:48:10 01/19/2018 09:39:26 Type 2 diabetes mellitus 71515274 E11.65 better with addition of januvia diet and exercise reinforced goal a1c still 7 Hyperlipidemia 11261171 E78.5 very well controlled Venereal d isease screening 438784250 Z11.3 one time screening Essential hypertension 65329396 I10 well controlled Hypothyroidism 51146903 E03.9 well controlled [id number] Jaycob Berger [facility] [address] [facility] [address] 05/13/2018 13:29:58 05/17/2018 08:49:12 Type 2 diabetes mellitus 08902169 E11.65 would like to work on diet and exercise and recheck in 3 months. if still elevated will discuss further treatment options such as trulicity Hyperlipidemia 48470216 E78.5 very well controlled Essential hypertension 13443776 I10 well controlled Hypothyroidism 10569726 E03.9 well controlled Edema of l ower extremity 116947743 R60.0 elevate, watch the sodium and work on diet and exercise [id number] Jaycob Berger [facility] [address] [facility], [address] [facility] [place] [address] 09/14/2018 13:32:28 09/14/2018 14:07:33 Type 2 diabetes mellitus 53126121 E11.65 has improved with diet and exercise would like to continue this Hyperlipidemia 35412108 E78.5 very well controlled Essential hypertension 35067160 I10 well controlled Hypothyroidism 64772241 E03.9 well controlled Edema of l ower extremity 835454195 R60.0 greatly improved Body mass index 40+ - severely obese 881961885 Z68.41 continue to work on healthy diet and exercise [id number] Jaycob Berger [facility] [address] [facility], [place] [address] 12/23/2018 10:48:06 12/23/2018 16:31:29 Type 2 diabetes mellitus 27104341 E11.65 has improved with diet and exercise would like to continue this januvia too expensive will start glyburide discussed risk for hypoglycem ia Hyperlipidemia 65777084 E78.5 very well controlled Essential hypertension 56313782 I10 well controlled Hypothyroidism 37228701 E03.9 well controlled Edema of l ower extremity 688820669 R60.0 greatly improved Body mass index 40+ - severely obese 987480885 Z68.41 continue to work on healthy diet and exercise Prostate s pecific antigen above reference range 603950385 R97.20 elevated PSA was started on lupron which does have a risk of diabetes, which is likely responsibl e for his spike in A1c given his diet has actually declined Fatigue 86391110 R53.83 Tick bite without infection 575183586 W57.XXXA [id number] Jaycob Berger 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 [address] [facility], [place] [address] 08/11/2019 08:22:05 08/11/2019 09:54:47 Type 2 diabetes mellitus 70718279 E11.65 30 minutes of exercise daily drastic diet changes aware that without improvemen t in 3 months, next step is insulin Body mass index 40+ - severely obese 399217419 Z68.41 Prostate s pecific antigen above reference range 063464543 R97.20 [id number] Jaycob Berger [facility] [address] [facility], [place] [address] 12/22/2019 08:43:33 12/22/2019 11:12:02 Essential hypertension 36195319 I10 BP elevated but patient has white coat hypertensi on will continue to monitor at home, where BP is much better Type 2 quang betes mellitus 57832031 E11.9 will continue to monitor, if it elevates again will put him on another medication [id number] [facility] [address] [facility] [address],[place] [address] 03/29/2020 10:01:56 03/29/2020 10:43:14 Essential hypertension 95298503 I10 BP elevated but patient has white coat hypertensi on will continue to monitor at home, where BP is much better fine at cardio appt which is great Type 2 quang betes mellitus 66780756 E11.9 going down, slowly, but is going down [id number] [facility] [address] [facility] [address],[place] [address] 08/06/2020 09:42:46 08/06/2020 14:53:17 Hypertensive disorder 48756754 I10 BP was fine at recheck Diabetes mellitus 207048 09 E11.9 A1c recheck was 9.1% discussed dieting tips for the patient [id number] [facility] [address] [facility] [address],[place] [address] 11/27/2020 09:35:47 11/27/2020 11:56:55 Type 2 diabetes mellitus 74497421 E11.9 discussed diet and exercise routine, slipped up due to vacation Essential hypertension 45110308 I10 BP elevated but patient has white coat hypertensi on will continue to monitor at home, where BP is much better fine at cardio appt which is great Hyperlipidemia 66397305 E78.5 stable Body mass index 40+ - severely obese 700553339 Z68.41 down in weight, working on diet now [id number] Jaycob Berger [facility] [address] [facility] [address],[place] [address] 03/24/2021 09:28:50 03/24/2021 10:33:05 Type 2 diabetes mellitus 80660465 E11.9 discussed diet and exercise routine, slipped up due to vacation Essential hypertension 72269055 I10 BP elevated but patient has white coat hypertensi on will continue to monitor at home, where BP is much better fine at cardio appt which is great Hyperlipidemia 23704845 E78.2 stable, no changes, good on medication [id number] [facility] [address] [facility] [address] [address] 07/22/2021 08:45:57 07/22/2021 12:36:25 Type 2 diabetes mellitus 71446873 E11.9 A1c is down, only taking the one pill of ERhe is working on his exercise and diet plan which has helped Hyperlipidemia 24420704 E78.2 stable, no changes, good on medication Essential hypertension 69361765 I10 BP is great at homeBP is fine today in officetend s to fluctuate Motion sickness 49620111 T75.3XXA will give patient a scop patch for his cruize [id number] [facility] [address] [facility] [address] [address] 12/16/2021 07:56:05 12/16/2021 09:56:49 Type 2 diabetes mellitus 77560070 E11.9 will stop metformin and start januvia Essential hypertension 23906615 I10 BP is excellent at homedid start on valsartan; developed side effectswil l stopsugges josé increasing metoprolol which the patient declined [id number] MELVIN ELLIOTT [facility] [address] [facility] [address] [address] 03/30/2022 09:01:57 03/30/2022 09:49:59 Essential hypertension 67566875 I10 BP is excellent at home per patienton the metoprolol 50 mg BID Type 2 quang betes mellitus 91964979 E11.9 will stop metformin and start januvia Body mass index 40+ - severely obese 974381657 Z68.41 down in weight, working on diet nowstill working of diet, suggested trial of [employer] galindo 2 monitor to see what his sugar is doing Advance care planning 71 8229111 Z71.89 advised [id number] [facility] [address] [facility] [address] [address] 05/04/2022 10:33:26 05/04/2022 11:56:43 Abnormal gait 21639462 R26.89 will set up with PT per oncologywi ll fu patient Type 2 quang betes mellitus 07934075 E11.9 will set up with lantusthe patient reports that [id number] Jaycob Berger [facility] [address] [facility],[place] [address] 05/20/2022 10:16:45 05/20/2022 11:45:05 Type 2 diabetes mellitus 83158001 E11.9 will re-submit the lantus for more refillssub sweetie the needs needles at [facility] in two weeks [id number] Jaycob Berger [facility] [address] [facility] [address] [address] 06/03/2022 10:00:32 06/03/2022 14:43:09 Essential hypertension 15484448 I10 BP is excellent at home per patienton the metoprolol 50 mg BID for the effects on heart Type 2 quang betes mellitus 97134673 E11.9 showing excellent progresswi ll cont all meds the sameno adjustment s Body mass index 40+ - severely obese 288858980 Z68.41 down in weight, working on diet nowstill working of diet, suggested trial of [employer] galindo 2 monitor to see what his sugar is doing [id number] Jaycob Berger [facility] [address] [facility],[place] [address] 06/17/2022 10:46:13 06/19/2022 10:26:58 Essential hypertension 03207601 I10 BP is excellent at home per patienton the metoprolol 50 mg BID for the effects on heart Type 2 quang betes mellitus 71797307 E11.9 showing excellent progresswi ll cont all meds the sameno adjustment s Irritable bowel syndrome 82024581 K58.9 will trial dicyclomin e [id number] Jaycob Berger [facility] [address] [facility],[place] [address] 07/01/2022 10:11:22 07/01/2022 14:56:03 Essential hypertension 14090034 I10 BP is excellent at home per patienton the metoprolol 50 mg BID for the effects on heart Irritable bowel syndrome 59733535 K58.9 doing really well on the medication as needed for the intestinal discomfort Type 2 quang betes mellitus 50337770 E11.65 showing excellent progresswi ll cont all meds the sameno adjustment s [id number] Jaycob Berger [facility] [address] [facility], [place] [address] 07/15/2022 14:07:14 07/15/2022 16:40:36 Type 2 diabetes mellitus 96029374 E11.65 showing excellent progresswi ll cont all meds the sameno adjustment s Essential hypertension 90111383 I10 BP is excellent at home per patienton the metoprolol 50 mg BID for the effects on heart Diabetes mellitus 608199 09 E11.9 [id number] Jaycob Berger [facility] [address] [facility], [place] [address] 07/29/2022 14:01:59 07/29/2022 15:57:42 Type 2 diabetes mellitus 67302233 E11.65 showing excellent progresswi ll cont all meds the sameno adjustment s Irritable bowel syndrome 05129673 K58.9 doing really well on the medication as needed for the intestinal discomfort [id number] Jaycob Berger [facility] [address] [facility], [place] [address] 08/12/2022 09:53:27 08/12/2022 11:58:59 Type 2 diabetes mellitus 70486730 E11.65 showing excellent progresswi ll cont all meds the sameno adjustment s [id number] Jaycob Berger [facility] Internal [facility] [address] [facility], [place] [address] 08/26/2022 10:34:49 08/26/2022 11:44:12 Type 2 diabetes mellitus 16977133 E11.65 increase to 4 units in the AM instead of 3 unitswill recheck in two weeks Essential hypertension 62967221 I10 BP is excellent at home per patienton the metoprolol 50 mg BID for the effects on heart Hyperlipidemia 24662336 E78.2 stable, no changes, good on medication [id number] Jaycob Wigginsda, [facility] Internal Medicine [address] [facility],[place] [address] 09/16/2022 09:13:12 09/16/2022 13:59:11 Type 2 diabetes mellitus [id number] E11.65 agreed to try ozempic instead of the rybelsuspt agreed to this plan [id number] Jaycob Shaffer Celine [facility] Internal Medicine [address],[place] [address] 10/07/2022 09:39:25 10/07/2022 10:46:23 Diabetic peripheral neuropathy 017838431 E11.41 will set up with repeat lab work [id number] Jaycob OlivaSha Berger [facility] Internal Medicine [address] [facility],[place] [address] 11/25/2022 08:57:18 11/27/2022 14:35:17 Diabetic peripheral neuropathy [id number] E11.41 will set up with repeat lab work Type 2 quang betes mellitus 74598916 E11.65 agreed to try ozempic instead of the rybelsuspt agreed to this plan Acute bronchitis 9258550 2 J20.8 will start on z-kp [id number] Jaycob Edmund Berger [facility] Internal Medicine [address],[place] [address] 12/22/2022 08:41:15 12/29/2022 12:59:54 Acute bronchitis 80692444 J20.8 stable Diabetes mellitus 632276 09 E11.9 adjusted Diabetic p eripheral neuropathy 921330849 E11.41 will set up with repeat lab work Essential hypertension 59566636 I10 BP is excellent at home per patienton the metoprolol 50 mg BID for the effects on heart Hyperlipidemia 55164058 E78.2 stable, no changes, good on medication Type 2 quang betes mellitus 90002374 E11.65 [place] [id number] Jaycob Shaffer Celine [facility] Internal Medicine [address] [facility] [place] [place] [address] 01/29/2023 10:10:37 01/29/2023 14:46:03 Acute bronchitis 02271300 J20.8 stable Coronary arteriosclerosis 42820953 I25.110 stable Diabetic p eripheral neuropathy 879785000 E11.41 stable Essential hypertension 26707840 I10 stable Type 2 quang betes mellitus 59931067 E11.65 adjusted dosage up [id number] Jaycob Berger [facility] Internal Medicine [address] [facility],[place] [address] 04/05/2023 10:54:49 04/05/2023 15:48:08 Diabetic peripheral neuropathy 088955108 E11.41 stable Type 2 quang betes mellitus 27170920 E11.65 up to 9.6% from 8.8%will adjust his doses again to accommodat e for the changes in diet Insomnia 931325114 G47.0 9 will try sleep aid since he continues with the insomnia; can be impacting his sugar [id number] Jaycob Berger [facility] Internal Medicine [address] [facility],[place] [address] 07/06/2023 07:59:29 07/06/2023 12:03:47 Type 2 diabetes mellitus 62080464 E11.65 up to 9.6% from 8.8%will adjust his doses again to accommodat e for the changes in diet [id number] Jaycob Berger [facility] Internal Medicine [address] [facility],[place] [address] 09/14/2023 09:39:40 09/15/2023 08:41:07 Depression screening 293983876 Z13.31 negative Type 2 quang betes mellitus 72547445 E11.65 up to 9.6% from 8.8%will adjust his doses again to accommodat e for the changes in diet [id number] Jaycob Berger [facility] Internal Medicine [address] [facility],[place] [address] 12/21/2023 08:47:36 12/21/2023 14:11:36 Type 2 diabetes mellitus 28345300 E11.41 E11.65 excellent A1c drop Hyperlipidemia 29573599 E78.2 stable, no changes, good on medication Body mass index 30+ - obesity 508589076 Z68.41 has lost total of 50 pounds which is amazing with the help of Coronary arteriosclerosis 56683750 I25.110 stable Essential hypertension 27717677 I10 stable Prostate s pecific antigen above reference range 329899619 R97.20 [id number] Jaycob Berger [facility] Internal Medicine [address] [facility],[place] [address] 05/01/2024 10:38:40 05/01/2024 11:31:26 Type 2 diabetes mellitus 22674973 E11.41 E11.65 will have him work on his diet again, usually works well for patient, holidays tend to be harder for him will possibly need PA for his ozempic Essential hypertension 85919235 I10 stable, excellentf ollow with cardiology regularly, every 6 mos [id number] Jaycob Berger [facility] Internal Medicine [address] [facility],[place] [address] 10/25/2024 08:46:24 10/25/2024 10:29:12 Depression screening 888168179 Z13.31 negative Type 2 quang betes mellitus 96952654 E11.41 E11.65 continue on medication as prescribed with dietary changestry ing to adjust for hypoglycem ic episodes Essential hypertension 36055193 I10 stable, excellentf ollow with cardiology regularly, every 6 mos Diabetic p eripheral neuropathy 761475848 E11.41 stable [id number] Jaycob Berger [facility] Internal Medicine [address] [facility],[place] [address] 01/29/2025 09:53:56 01/29/2025 11:01:37 Type 2 diabetes mellitus 59709489 E11.9 Z79.4 46605086 continue on medication as prescribed with dietary changestry ing to adjust for hypoglycem ic episodes Essential hypertension 18942789 I10 stable, excellentf ollow with cardiology regularly, every 6 mos Health Concerns Section Related Observation LastModified by Organization Detai ls LastModified Time None Recorded Concern Status LastModified by Organization Details LastModified Time None Recorded Advance Directives Directive None Recorded Payers Insurance Date Sequence Insurance Name Policy Number Policy Aguilar Covered Member ID Aguilar Member ID Guarantor Name 01/26/2025 1 MEDICARE [place]: [employer] value [employer] Obi Erasto Amaya [id number] Obi Amaya 01/26/[address] [facility] OPTIONS - PLAN T2 (INDEMNITY) Obi Amaya [id number] Obi Amaya Notes Date Note Type Note Provider Name and Address Organization Details Recorded Time 4 text/htm l ROS as noted in the HPI f/u 3 mos the patient is been [...] of their medications needed [facility] at [facility] ed on medicationdenies chest pain, sob, ankle swelling, orthopnea, palpitations standing all set for the year MELVIN ELLIOTT [address] [place], [address], [facility] Internal Medicine 09/14/2023 10:36:19 4 text/htm l ROS as noted in the HPI 3 mos f/u The patient is participating in this appointment via telemedicine communication with a phone call/video calling service ([employer])The patient consents to use of these platforms [...] very careful with his diet MELVIN ELLIOTT [address] [place], [address], 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 Internal Medicine 05/01/2024 11:26:35 5 text/htm l ROS as noted in the HPI f/u T2DM Patient is down from original starting weight of 299 lbs to 259 lbs the patient is actually getting low events, has had four in the past week, usually around 4 pm the patient is also getting spikes, probably a combination of not eating at lunch and eating habitsrecommended protein for the patient (not too much to bother his kidneys, but enough to even Patient presents today for follow-up for Type 2 Diabetes Recent lab showed an A1c of 9%, previously 8.5% and 8%, started elevating prior at 9.3%patient is currently on ozempic, januvia, glipizide and insulin for diabetic medication recommendation is to change to mounjaro if his insurance also which has demonstrated better glucose controlor increase insulin dosage patient wants to continue ozempicno side effects, his CGM is showing much better numbers, average around 149most likely elevated due to the f/u The patient has been compliant with medicationsThe complications patient is experiencing are weight gainThe patient has current concerns about related to their diabetes diagnosis better control of the numbersThe patient has been compliant with lifestyle changes including dietary changes, exercise and healthy habits, though he does tend to go off his diet if he is going out with friends or on trips Discussion about feet reveals no change, still has some level of neuropathyDiscussion about eyes reveal no change Treatment plan going forward is continued glucose monitoring, better control over the drops patient agrees to this plan MELVIN ELLIOTT [address] [facility], [place], [address], [facility] Internal Medicine 10/25/2024 09:21:26 5 text/htm l ROS as noted in the HPI f/u 3 mos check the patient needs a new order from the [employer] [facility] 3 plus the order was placed [...] ankle swelling, orthopnea, palpitations MELVIN ELLIOTT [address] [facility], [place], [address], [facility] 01/29/2025 10:59:43
[2025-04-16 18:49] LABS: Microalbum/Creatinine Ratio Ur 23.6 ug/mg cr (<30)
== END 2025-04-16 15:32 | disposition home or self-care (01) ==
LOC: HO.LABR 15:31
PROVIDERS: PCP Internal Medicine; Visit Provider Physician Assistant
DX: E11.9 Type 2 diabetes mellitus without complications (principal); Z79.4 Long term (current) use of insulin
CPT/HCPCS: 36415; 80053; 82043; 82570; 83036